=== PATIENT | male | born 1945 | race Caucasian/White ===

== ENCOUNTER 2017-11-08 08:37 | Outpatient (CLI) | payer MEDICARE, OTHER ==
--- NOTE | 2017-11-08 09:33 | ULT ---
ULTRASOUND RENAL LEFT UNILATERAL: Date: 11/08/17 HISTORY: BPH with lower urinary symptoms. COMPARISON: CT from 2015. FINDINGS: Right kidney is surgically absent. Left kidney measures 13.5 x 6.2 x 6.2 cm. Pre-void urinary bladder was 38 mL. No left-sided mass, hydronephrosis, or calcifications. IMPRESSION: Normal appearance of the left kidney. POS: [facility]
== END 2017-11-08 08:38 | disposition home or self-care (01) ==
LOC: ULT 08:37
PROVIDERS: ATTEND Urology
DX: N40.1 Benign prostatic hyperplasia with lower urinary tract symptoms (principal)
CPT/HCPCS: 76775

== ENCOUNTER 2017-12-03 15:31 | Emergency (ER) | payer MEDICARE, OTHER ==
[2017-12-03] MEDS ORDERED: diphenhydrAMINE 50 MG/ML VIAL ONE (15:39)
[2017-12-03] MEDS ORDERED: Sterile Water 10 ML ONE (15:39)
[2017-12-03] MEDS ORDERED: methylPREDNISolone Sod Succ/PF 125 MG/2 ML VIAL ONE (15:39)
[2017-12-03] MEDS ORDERED: Famotidine/PF 20 mg/2ml Vial ONE (15:39)
[2017-12-03] MEDS ORDERED: Sodium Chloride For Inhalation 0.9% 3 ML NEB ONE (15:48)
[2017-12-03] MEDS ORDERED: Benzocaine 20% Spray 60 ML CAN ONE (16:08)
== END 2017-12-03 16:55 | disposition home or self-care (01) ==
LOC: SCSER 15:31
DX: T63.441A Toxic effect of venom of bees, accidental (unintentional), initial encounter (principal); E11.9 Type 2 diabetes mellitus without complications; E78.5 Hyperlipidemia, unspecified; I10 Essential (primary) hypertension; F17.290 Nicotine dependence, other tobacco product, uncomplicated; Z85.528 Personal history of other malignant neoplasm of kidney; Z79.82 Long term (current) use of aspirin; Z79.899 Other long term (current) drug therapy
CPT/HCPCS: 93005; 96361; 96374; 96375; A4216; J1200; J2930; J7620; S0028

== ENCOUNTER 2018-08-26 11:24 | Outpatient (CLI) | payer MEDICARE, OTHER ==
--- NOTE | 2018-08-26 13:23 | RAD ---
TWO VIEWS CHEST: Comparison: 09-02-17, 07-22-18 History: Shortness of breath, cough. FINDINGS: Two views of the chest shows normal sized cardiomediastinal silhouette. There are diffused mixed alve olar/interstitial opacities which appear worse compared to the prior examination. No pleural effusion is seen. The patient is status post right shoulder arthroplasty. IMPRESSION: Worsening mixed alveolar/interstitial infiltrates throughout the lungs. POS: [facility]
== END 2018-08-26 11:25 | disposition home or self-care (01) ==
LOC: BICRAD 11:24
PROVIDERS: ATTEND Internal Medicine
DX: R05 Cough (principal); R06.09 Other forms of dyspnea
CPT/HCPCS: 71046

== ENCOUNTER 2018-08-31 10:43 | Outpatient (CLI) | payer MEDICARE, OTHER ==
--- NOTE | 2018-08-31 13:04 | RAD ---
FRONTAL AND LATERAL IMAGING OF THE CHEST: Date: 08-31-18 Comparison: 08-26-18 History: Shortness of breath FINDINGS: Extensive nonspecific articular nodular densities are noted throughout both lungs, right greater than left, not significantly changed when compared to 08-26-18. There is stable prominence of the cardiac silhouette. Heart and mediastinal contours are stable. There is no pneumothorax. Small bilateral ple ural effusions are suspected. There is slight widening of the superior mediastinum, unchanged when compared to studies dating back to 03-14-16. IMPRESSION: Stable appearance of the chest when compared to the 08-26-18 examination. Findings are slightly more prominent than on the 07-22-18 exam. Nonspecific reticular nodular densities are noted which may sign dennis multifocal infectious pneumonitis or pulmonary edema. However, these findings may be on the basis of malignancy with bilateral pulmonary parenchymal metastatic disease. Code T POS: [facility]
== END 2018-08-31 10:44 | disposition home or self-care (01) ==
LOC: RAD 10:43
PROVIDERS: ATTEND Internal Medicine Critical Care Medicine
DX: R06.00 Dyspnea, unspecified (principal); J98.4 Other disorders of lung
CPT/HCPCS: 71046

== ENCOUNTER 2018-10-29 19:32 | Inpatient (IN) | payer MEDICARE, OTHER ==
[2018-10-29 20:17] LABS: #Eosinphils 0.2 thou/uL (0.0-0.7); #Lymphocytes 1.2 thou/uL (1.20-3.40); #Monocytes 0.7 thou/uL (0.11-0.59); #Neutrophils 9.1 thou/uL (1.40-6.50); %Eosinophils 1.7 % (0.0-10.0); %Lymphocytes 10.8 % (21.0-51.0); %Monocytes 6.2 % (0.0-10.0); %Neutrophils 81.3 % (42.0-75.0); Hemoglobin 12.5 g/dL (14.0-18.0); Mean Corpuscular HGB CONC 32.3 g/dL (32.0-36.0); Mean Corpuscular Hemoglobin 30.6 pg (27.0-31.0); Mean Corpuscular Volume 94.7 fL (78.0-98.0); Mean Platelet Volume 6.2 fL (7.4-10.4); Platelet Count 228 thou/uL (130-400); RBC Distribution Width 16.6 % (11.5-14.5); White Blood Cell (WBC) Count 11.2 thou/uL (4.8-10.8)
[2018-10-29 20:50] LABS: ALT (SGPT) 23 U/L (8-55); AST (SGOT) 22 U/L (5-34); Albumin 3.7 g/dL (3.4-4.8); Alkaline Phosphatase 89 U/L (40-150); Anion Gap 13 mmol/L (10-20); BUN (Urea Nitrogen) 26 mg/dL (8.4-25.7); Bilirubin, Total 0.5 mg/dL (0.2-1.2); CK (CPK) 110 U/L (30-200); Calc. Creatinine Clearance 0 mL/min (70-130); Calcium 8.9 mg/dL (7.8-10.44); Carbon Dioxide 24 mmol/L (23-31); Chloride 104 mmol/L (98-107); Estimated GFR-MDRD 43; Globulin 2.6 g/dL (2.4-3.5); Glucose 145 mg/dL (83-110); Lipase 18 U/L (8-78); Potassium 4.4 mmol/L (3.5-5.1); Protein, Total 6.3 g/dL (5.8-8.1); Sodium 137 mmol/L (136-145)
[2018-10-29] MEDS ORDERED: Morphine 4 MG/ML VIAL ONE (20:53)
[2018-10-29] MEDS ORDERED: Acetaminophen 500 MG TAB ONE (20:56)
[2018-10-29 21:02] LABS: Bilirubin Negative (Negative); Blood, Urine Small (Negative); Clarity CLEAR (Clear); Glucose, Urine (Dipstick) 100 mg/dL (Negative); Leukocyte Negative (Negative); Nitrite Negative (Negative); Protein, Urine (Dipstick) > or equal to 300 mg/dL (Neg-Trace); Specific Gravity, Urine 1.027 (1.002-1.036); Urobilinogen 0.2 mg/dL (0.2-1.0)
[2018-10-29 21:07] LABS: Bacteria/HPF None Seen HPF (None Seen); Hyaline Casts/LPF 4-6 HYALINE CAST LPF (0-3 Hyaline); Pathc Cast-AUWi Flag 0.72 (0-2.49); Squamous Epithelial 0-3 HPF (0-3); WBC/HPF 0-3 HPF (0-3)
[2018-10-29] MEDS ORDERED: Vancomycin HCl 1.5 GM in Sodium Chloride 0.9% 250 ML 300 ML IVPB SCH (21:30)
[2018-10-29] MEDS ORDERED: Cefepime 1 GM in Sodium Chloride 0.9% 100 ML IVPB SCH (21:30)
--- NOTE | 2018-10-29 21:45 | RAD ---
AP VIEW CHEST 10/29/18 HISTORY: Chest pain. AP view chest obtained on 10/29/18. Comparison made to a previous exam from 08/31/18. AP view chest demonstrates right shoulder arthroplasty in place. Cardiomegaly is seen. Bilateral lung parenchymal air space opacity seen. This is less pronounced than on the previous exam. Pulmonary vascular congestion seen. IMPRESSION: 1. Cardiomegaly, pulmonary vascular congestion. 2. Peristent but decreased bilateral air space opacities. POS: [facility]
[2018-10-29] MEDS ORDERED: Ondansetron ODT 4 MG TAB PO PRN (22:15)
[2018-10-29] MEDS ORDERED: Ondansetron PF 4 MG/2 ML Vial IVP PRN (22:15)
[2018-10-29] MEDS ORDERED: Fentanyl 100 MCG/2 ML VIAL ONE (22:38)
[2018-10-30 00:41] VITALS: BMI 40.6
[2018-10-30] MEDS ORDERED: Morphine 2 MG/ML SYRINGE SLOW IVP PRN ×3 (00:51→04:57)
[2018-10-30] MEDS ORDERED: HumaLOG 300 UNITS/3 ML VIAL SC PRN (01:14)
[2018-10-30] MEDS ORDERED: Dextrose 5% in Water 1,000 ML IV PRN (01:14)
[2018-10-30] MEDS ORDERED: Dextrose 50% Abboject 50 ML SYRINGE SLOW IVP PRN (01:14)
[2018-10-30] MEDS ORDERED: Morphine 4 MG/ML VIAL SLOW IVP PRN (01:21)
[2018-10-30] MEDS ORDERED: Morphine 4 MG/ML VIAL ONE (01:25)
--- NOTE | 2018-10-30 02:51 | HP ---
PRIMARY CARE DOCTOR: Jose Luis Whelan MD CODE STATUS: Full code. TIME OF EVALUATION: 2200 hours. CHIEF COMPLAINT: Right groin pain. HISTORY OF PRESENT ILLNESS: This is a 73-year-old male patient. The patient has past medical history of diabetes, hyperlipidemia, hypertension, renal cell carcinoma on chemotherapy and immunotherapy on a daily basis. The patient came to the hospital after having severe right flank pain, most severe in the right groin area, radiating to the back. The patient reported that he has had this pain in the past, and he has received some treatment for the pain that was related to procedure. He cannot recall the name and the pain improved significantly. Symptoms have come back now and that was the reason why he came to the hospital. During the admission, the patient also was found to have fever, and he has been started on broad-spectrum antibiotics since the patient has a history of cancer being on chemo on a daily basis. The patient follows at [facility], and the was concerned that they have an appointment for a full checkup in [facility] two days from now and then she could like to go home tomorrow, we have discussed risks and benefits. He is febrile, he is on chemotherapy, very high risk for complications, has explained to her that the decision of being willing to go might be risky, and that might be again disclose tomorrow with my colleagues in the morning. Symptoms were severe, needing opioid medications for optimal control. REVIEW OF SYSTEMS: CONSTITUTIONAL: The patient had fever, no chills. The patient reported generalized weakness. RESPIRATORY: No cough, sputum production, or shortness of breath. CARDIOVASCULAR: No chest pain or palpitation. GASTROINTESTINAL: No nausea. No vomiting, diarrhea, or abdominal pain. VENEER CLIPPER: No dizziness, headache, or feeling lightheaded. GENITOURINARY: The patient has right groin pain radiating to the right flank, unclear if related to the genitourinary tract. However, he reported that this was on presentation related to his testicles that resolved few years ago after specialized treatment. EXTREMITIES: No leg swelling. All other systems were reviewed and negative except for the findings mentioned above. PAST MEDICAL HISTORY: Past medical history includes diabetes, hyperlipidemia, hypertension, and renal cell carcinoma on immunotherapy. FAMILY HISTORY:Reviewed and no contributory for current presentation. PAST SURGICAL HISTORY: 1. Nephrectomy on the right side in 11/2014. 2. Orthopedic surgery in the right and left knee, right shoulder. 3. Partial left upper lobe lobectomy. 4. Left hip replacement. SOCIAL HISTORY: Former tobacco user. Smokes cigarettes. Quit smoking in the past year. The patient drinks everyday, drinks half a pint of drinks per day. Alcohol, the patient drinks 1 to 2 whisky drinks on a daily basis. ALLERGIES: CIPROFLOXACIN. REPORTED MEDICATIONS: 1. Senna. 2. Victoza. 3. Procardia. 4. Reglan. 5. Ritalin. 6. Fludrocortisone. 7. Flomax. 8. Eliquis. 9. [place]. 10. Finasteride. 11. Cymbalta. 12. Cometriq. PHYSICAL EXAMINATION: VITAL SIGNS: On presentation, blood pressure 155/80 with heart rate 77, respiratory rate was 22, temperature 102.6, pain was 5/10. Oxygen saturation was 97% on room air. GENERAL APPEARANCE: The patient is alert, oriented, mild distress due to right groin pain. HEENT: Eyes, normal conjunctivae. Moist oral mucosa. Anicteric. No JVD. RESPIRATORY: Bilateral air entry. No rales. No wheezes. Symmetric expansion. CARDIOVASCULAR: Normal rate and regular rhythm. No murmurs. No gallop. No edema. ABDOMEN: Soft. Normal bowel sounds. MUSCULOSKELETAL: Baseline range of motion and strength. No tenderness. SKIN: Warm and intact. No pallor. No rash. No redness. Peripheral pulses are present. Capillary refill seems to be intact. NEURO: No evidence of any new focal weakness. Baseline speech. Cranial nerves seem to be intact. PSYCH: The patient is in good mood. No anxiety. Optimal judgment. DIAGNOSTIC STUDIES: EKG was reviewed. The patient has normal sinus rhythm, ventricular rate 74, TN 170, QRS 108, QT corrected 415. Chest x-ray was reviewed. The patient has cardiomegaly and pulmonary vascular congestion, persistent, but decreased, bilateral air space opacity. LABORATORY DATA: Labs were reviewed. White count 11.2, hemoglobin 12.5, MCV 94.7, and platelet count 228. Chemistry: Sodium 137, potassium 4.4, chloride 104, carbon dioxide 24, anion gap 13, BUN 36, creatinine 1.59, the previous creatinine in 2017 was 1.49. The GFR 43. Glucose 145. Lactic acid 1.5, calcium 8.9, total bilirubin 0.5, AST 22, ALT 23, alkaline phosphatase 89, CK 110. Troponin 0.014. Beta-natriuretic peptide was 57.3. Serum total protein 6.3, albumin 3.7, globulin 2.6, albumin globulin ratio is 1.4 with lipase 18. Urine was done was basically negative. ASSESSMENT AND PLAN: The patient has been placed in the hospital with the following medical problems: 1. Systemic inflammatory response syndrome. The patient is immunosuppressed, on chemotherapy on a daily basis. The patient has been started on broad-spectrum antibiotics. We will follow cultures, adjust treatment as needed. 2. Right groin pain. The patient reported that he has a strange syndrome that give him right groin pain that he has been treated with specialist for this and now resolved with the procedure that he does not recall the name a few years ago , this will need to be reassessed for any further treatment. 3. Chronic kidney disease, stage 3. GFR is 43, we will follow kidney function, we will adjust treatment as needed. 4. Hyperglycemia, uncontrolled diabetes. Blood sugar 145. We will reconcile home medications and place the patient on sliding scale for optimal control. 5. History of renal cell carcinoma, on chemotherapy and immunotherapy. The patient follows in [facility], is willing to be discharged tomorrow, and take the patient to [facility] for a full checkup. I have explained him there maybe risk since the patient is having fever and we do not know the source yet. This can be reassessed and rediscussed with the patient and in the morning. 6. Deep venous thrombosis prophylaxis. Job ID: [id number] [facility]
[2018-10-30] MEDS: Morphine 2 MG/ML SYRINGE SLOW IVP PRN ×6 (05:02→17:37)
[2018-10-30 06:53] LABS: #Eosinphils 0.3 thou/uL (0.0-0.7); #Monocytes 0.8 thou/uL (0.11-0.59); #Neutrophils 5.8 thou/uL (1.40-6.50); %Basophils 0.4 % (0.0-1.0); %Eosinophils 2.9 % (0.0-10.0); %Lymphocytes 22.7 % (21.0-51.0); %Monocytes 8.7 % (0.0-10.0); %Neutrophils 65.3 % (42.0-75.0); Hemoglobin 11.1 g/dL (14.0-18.0); Mean Corpuscular HGB CONC 31.8 g/dL (32.0-36.0); Mean Corpuscular Hemoglobin 30.5 pg (27.0-31.0); Mean Platelet Volume 6.4 fL (7.4-10.4); Platelet Count 205 thou/uL (130-400); RBC Distribution Width 16.5 % (11.5-14.5); Red Blood Cell (RBC) Count 3.65 mill/uL (4.70-6.10); White Blood Cell (WBC) Count 8.9 thou/uL (4.8-10.8)
[2018-10-30 07:10] LABS: Anion Gap 10 mmol/L (10-20); BUN (Urea Nitrogen) 26 mg/dL (8.4-25.7); Calc. Creatinine Clearance 72 mL/min (70-130); Calcium 8.5 mg/dL (7.8-10.44); Carbon Dioxide 24 mmol/L (23-31); Chloride 106 mmol/L (98-107); Estimated GFR-MDRD 44; Glucose 107 mg/dL (83-110); Potassium 4.2 mmol/L (3.5-5.1); Sodium 136 mmol/L (136-145)
[2018-10-30] MEDS ORDERED: Cefepime 1 GM in Sodium Chloride 0.9% 100 ML IVPB SCH (08:00)
[2018-10-30] MEDS: Acetaminophen 325 MG TAB PO PRN ×2 (10:00→15:28)
[2018-10-30] MEDS ORDERED: Zolpidem Tartrate 5 MG TAB PO PRN (10:22)
--- NOTE | 2018-10-30 10:59 | PRG ---
DATE OF SERVICE: SUBJECTIVE: The patient reports that he is doing generally okay. The pain in his right groin and hip area has basically resolved. He is able to ambulate. As stated previously, this is not a new pain for him and was not terribly surprised that it occurred this morning; however, he is having significant pain and throbbing in his left elbow, which he believes may be due to some arthritis. He does have a history of arthritis and bone spurs in that elbow and is not able to fully extend it. He describes the pain as being over the ulnar groove. PHYSICAL EXAMINATION: VITAL SIGNS: Temperature maximum 98.3, temperature 98.1, pulse 59, respirations 16, O2 saturation 95% on room air, and BP 154/71. GENERAL APPEARANCE: Age-appropriate male, in no distress. He is awake, alert, oriented, pleasant, and cooperative. HEENT: Pupils slightly constricted and he is all glassy eyed. No OP lesions. HEART: Regular rate and rhythm without murmurs. LUNGS: Clear to auscultation bilaterally with no wheeze or rales. ABDOMEN: Soft, nontender, and nondistended. Positive bowel sounds. No masses. No organomegaly. EXTREMITIES: He has trace edema in the lower extremities pretibially. Left elbow has inability to fully extend to about 15 degrees shy. There is tenderness to palpation over the area of the ulnar groove and ulnar nerve just distal from there. 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 LABORATORY DATA: White count 8.9, hemoglobin 11.1, and platelets 205. BUN 26 and creatinine 1.55. Flu screen was negative. Blood cultures negative thus far. IMPRESSION AND PLAN: 1. Right groin and hip pain, resolved. 2. Fever. The patient has been afebrile since arriving from the emergency department. His white count is normal and he has no specific indications of infection going on at this time. His chest x-ray did not show significant evidence for pneumonia and his urinalysis showed no evidence of infection either. Currently, he is on cefepime and vanc. We will leave him on that for now. 3. Left elbow pain. We will get an x-ray. The patient unfortunately has chronic kidney disease because of his renal cell carcinoma and history of nephrectomy. Therefore, we will avoid anti-inflammatories. Because of his single episode of fever, we will avoid steroids. Otherwise, he will have to stay on opioids and Tylenol as best we can manage it. 4. History of renal cell carcinoma. The patient has an appointment at [facility] tomorrow morning. They very much would like to be able to leave this afternoon so that they can make that appointment in the morning. I believe if he does not have any more fever throughout the day today, can likely be discharged on p.o. antibiotic to follow up for further evaluation there as needed. He appears to be relatively immunocompetent based on his CBC. 5. Chronic kidney disease secondary to the renal cell carcinoma and the prior nephrectomy. His creatinine is at his baseline as is his creatinine clearance at 44 giving him stage 3 disease. 6. I will resume his regular home medications today. Job ID: [id number]
[2018-10-30] MEDS: HYDROcodone/Acetaminophen 10/325 mg Tablet PO PRN ×2 (12:06→17:36)
--- NOTE | 2018-10-30 14:46 | RAD ---
4 VIEWS LEFT ELBOW: Date: 10/30/18 HISTORY: Left elbow pain. FINDINGS: There are severe degenerative changes and osteoarthritis involving the left elbow with prominent oste ophytes in the region of the radial head. There are corticated osseous densities also seen anterior t o the elbow joint, likely attributable to prominent degenerative changes. Intraarticular loose body i n this region cannot be entirely excluded. There is a moderate sized joint effusion present. There is a lucent lesion seen involving the olecranon process of the elbow, which does demonstrate sclerotic margins. This may represent a large subchondral cyst secondary to degenerative changes about the elbo w. No obvious acute fracture is seen, and there is no evidence of a dislocation. IMPRESSION: 1. Moderate sized joint effusion. No obvious fracture is seen, but the size of the joint effusion is out of proportion to that expected for degenerative changes, and a fracture should be considered. Ra dial head or neck fracture would be difficult to exclude given prominent osteophytes. 2. 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 3. Lytic lesion within the olecranon process of the ulna, probably related to large subchondral cyst ic changes and secondary to the degenerative changes about the elbow. This has an overall nonaggressi ve appearance, but this can also be reevaluated on follow-up examination. CODE T. POS: [facility]
[2018-10-30 18:20] VITALS: BP 145/67; TEMP 98.1
[2018-10-30] MEDS ORDERED: Apixaban 5 MG TAB PO SCH (21:00)
[2018-10-30] MEDS ORDERED: METHYLPHENIDATE HCL 20 MG PO SCH (21:00)
[2018-10-30] MEDS ORDERED: INSULIN DETEMIR 16 UNIT SQ SCH (21:00)
[2018-10-30] MEDS ORDERED: Insulin Glargine 16 UNITS in Pre-Filled Syringe 1 EACH SC SCH (21:00)
[2018-10-31] MEDS ORDERED: Fludrocortisone Acetate 0.1 MG TAB PO SCH (09:00)
[2018-10-31] MEDS ORDERED: Senokot 8.6 MG TAB PO SCH (09:00)
[2018-10-31] MEDS ORDERED: CABOZANTINIB S MALATE 40 MG PO SCH (09:00)
[2018-10-31] MEDS ORDERED: Furosemide 20 MG TAB PO SCH (09:00)
[2018-10-31] MEDS ORDERED: DULoxetine 60 MG CAP PO SCH (09:00)
[2018-10-31] MEDS ORDERED: Finasteride 5 MG TAB PO SCH (09:00)
[2018-10-31] MEDS ORDERED: Multivit, Therapeutic 1 TAB PO SCH (09:00)
[2018-10-31] MEDS ORDERED: Metoclopramide HCl 10 MG TAB PO SCH (09:00)
[2018-10-31] MEDS ORDERED: NIFEdipine XL 60 MG TAB PO SCH (09:00)
== END 2018-10-30 18:27 | disposition home or self-care (01) | DRG 392 ==
LOC: ERS 19:32 → ONC 21:55
PROVIDERS: ADMIT Hospitalist; ATTEND Hospitalist
DX: R10.31 Right lower quadrant pain (principal); R65.10 Systemic inflammatory response syndrome (SIRS) of non-infectious origin without acute organ dysfunction; E11.22 Type 2 diabetes mellitus with diabetic chronic kidney disease; E11.65 Type 2 diabetes mellitus with hyperglycemia; I12.9 Hypertensive chronic kidney disease with stage 1 through stage 4 chronic kidney disease, or unspecified chronic kidney disease; N18.3 Chronic kidney disease, stage 3 (moderate); Z92.21 Personal history of antineoplastic chemotherapy; Z87.891 Personal history of nicotine dependence; M25.522 Pain in left elbow; Z90.5 Acquired absence of kidney
CPT/HCPCS: 36415; 36416; 71045; 80048; 80053; 81003; 81015; 82550; 83605; 83690; 83880; 84484; 85025; 87040; 87086; 87804; 93005; J0692; J1825; J2270; J3010; J3370; J7050

== ENCOUNTER 2018-11-30 10:37 | Emergency (ER) | payer MEDICARE, OTHER ==
[2018-11-30] MEDS ORDERED: Morphine 4 MG/ML VIAL ONE ×2 (11:38→14:27)
[2018-11-30] MEDS ORDERED: Morphine 2 MG/ML SYRINGE ONE ×2 (11:39→14:28)
[2018-11-30 11:50] LABS: #Eosinphils 0.2 thou/uL (0.0-0.7); #Lymphocytes 1.3 thou/uL (1.20-3.40); #Monocytes 0.7 thou/uL (0.11-0.59); #Neutrophils 7.1 thou/uL (1.40-6.50); %Basophils 0.4 % (0.0-1.0); %Eosinophils 2.3 % (0.0-10.0); %Lymphocytes 14.1 % (21.0-51.0); %Monocytes 7.9 % (0.0-10.0); %Neutrophils 75.2 % (42.0-75.0); Hemoglobin 12.6 g/dL (14.0-18.0); Mean Corpuscular HGB CONC 32.5 g/dL (32.0-36.0); Mean Corpuscular Hemoglobin 30.8 pg (27.0-31.0); Mean Corpuscular Volume 94.5 fL (78.0-98.0); Mean Platelet Volume 6.5 fL (7.4-10.4); Platelet Count 238 thou/uL (130-400); RBC Distribution Width 17.6 % (11.5-14.5); Red Blood Cell (RBC) Count 4.09 mill/uL (4.70-6.10); White Blood Cell (WBC) Count 9.4 thou/uL (4.8-10.8)
--- NOTE | 2018-11-30 12:04 | RAD ---
FXR Elbow Lt 2 View History: [Pain. Questionable bone lesion.] Comparison: Radiograph October 30, 2018 Findings: There is a large joint effusion. There is large subcortical cyst olecranon. Large osteophyt es are present in the medial compartment. Moderate soft tissue swelling. No definite acute fractures appreciated. Impression: Advanced degenerative changes.
[2018-11-30 12:11] LABS: ALT (SGPT) 29 U/L (8-55); AST (SGOT) 25 U/L (5-34); Albumin 3.5 g/dL (3.4-4.8); Alkaline Phosphatase 92 U/L (40-150); Anion Gap 13 mmol/L (10-20); BUN (Urea Nitrogen) 30 mg/dL (8.4-25.7); Bilirubin, Total 0.8 mg/dL (0.2-1.2); CK (CPK) 70 U/L (30-200); Calc. Creatinine Clearance 0 mL/min (70-130); Calcium 9.6 mg/dL (7.8-10.44); Carbon Dioxide 27 mmol/L (23-31); Chloride 101 mmol/L (98-107); Estimated GFR-MDRD 38; Globulin 3.8 g/dL (2.4-3.5); Glucose 131 mg/dL (83-110); Potassium 5.4 mmol/L (3.5-5.1); Protein, Total 7.3 g/dL (5.8-8.1); Sodium 136 mmol/L (136-145); Uric Acid 7.3 mg/dL (3.5-7.2)
--- NOTE | 2018-12-01 17:13 | RAD ---
F2 views right elbow. HISTORY: right elbow pain. AP and lateral views right elbow is obtained. There is severe right elbow osteoarthritic changes involving the radial head and olecranon. No eviden ce of acute fractures seen. No acute bony lesions noted. IMPRESSION: Right elbow osteoarthritis.
== END 2018-11-30 14:41 | disposition home or self-care (01) ==
LOC: ERS 10:37
DX: M19.022 Primary osteoarthritis, left elbow (principal); M19.021 Primary osteoarthritis, right elbow; E11.9 Type 2 diabetes mellitus without complications; E78.5 Hyperlipidemia, unspecified; I10 Essential (primary) hypertension; Z87.891 Personal history of nicotine dependence; Z79.899 Other long term (current) drug therapy
CPT/HCPCS: 36415; 80053; 82550; 84550; 85025; 96372; J2270

== ENCOUNTER 2018-12-02 14:33 | Emergency (ER) | payer MEDICARE, OTHER | END 2018-12-02 15:34 | disposition home or self-care (01) | LOC: SCSER 14:33 | DX: M25.521 Pain in right elbow (principal); M25.522 Pain in left elbow; E78.5 Hyperlipidemia, unspecified; I10 Essential (primary) hypertension; E11.9 Type 2 diabetes mellitus without complications; Z87.891 Personal history of nicotine dependence; Z79.82 Long term (current) use of aspirin; Z79.899 Other long term (current) drug therapy | CPT/HCPCS: 96372 ==

== ENCOUNTER 2019-03-06 14:43 | Emergency (ER) | payer MEDICARE, OTHER ==
--- NOTE | 2019-03-06 15:21 | RAD ---
2 VIEWS RIGHT TIBIA AND FIBULA: Date: 03/06/19 COMPARISON: None. HISTORY: Right lower leg pain since Wednesday when he walked into the edge of a trailer. FINDINGS: 2 views of the right tibia/fibula show no evidence of acute fracture or dislocation. The patient has a right knee prosthesis without perihardware lucency or fracture. Vascular calcifications are seen. IMPRESSION: No evidence of acute osseous abnormality. POS: [facility]
== END 2019-03-06 15:32 | disposition home or self-care (01) ==
LOC: SCSER 14:43
DX: S80.11XA Contusion of right lower leg, initial encounter (principal); E11.9 Type 2 diabetes mellitus without complications; E78.5 Hyperlipidemia, unspecified; I10 Essential (primary) hypertension; Z87.891 Personal history of nicotine dependence; Z79.82 Long term (current) use of aspirin; Z79.899 Other long term (current) drug therapy; X50.9XXA Other and unspecified overexertion or strenuous movements or postures, initial encounter

== ENCOUNTER 2019-06-25 06:50 | Inpatient (IN) | payer MEDICARE, OTHER ==
[2019-06-25 07:09] LABS: #Eosinphils 0.1 thou/uL (0.0-0.7); #Lymphocytes 1.5 thou/uL (1.20-3.40); #Monocytes 0.3 thou/uL (0.11-0.59); #Neutrophils 6.3 thou/uL (1.40-6.50); %Basophils 0.3 % (0.0-1.0); %Eosinophils 1.6 % (0.0-10.0); %Lymphocytes 18.3 % (21.0-51.0); %Monocytes 3.8 % (0.0-10.0); %Neutrophils 75.9 % (42.0-75.0); Mean Corpuscular Hemoglobin 31.1 pg (27.0-31.0); Mean Platelet Volume 6.8 fL (7.4-10.4); Platelet Count 211 thou/uL (130-400); RBC Distribution Width 17.1 % (11.5-14.5); White Blood Cell (WBC) Count 8.4 thou/uL (4.8-10.8)
[2019-06-25 07:32] LABS: ALT (SGPT) 40 U/L (8-55); AST (SGOT) 26 U/L (5-34); Albumin 3.3 g/dL (3.4-4.8); Alkaline Phosphatase 78 U/L (40-110); Anion Gap 13 mmol/L (10-20); BUN (Urea Nitrogen) 30 mg/dL (8.4-25.7); Bilirubin, Total 0.7 mg/dL (0.2-1.2); CK (CPK) 73 U/L (30-200); Calc. Creatinine Clearance 0 mL/min (70-130); Calcium 9.3 mg/dL (7.8-10.44); Carbon Dioxide 24 mmol/L (23-31); Chloride 104 mmol/L (98-107); Estimated GFR-MDRD 38; Globulin 3.1 g/dL (2.4-3.5); Glucose 185 mg/dL (83-110); Potassium 4.7 mmol/L (3.5-5.1); Protein, Total 6.4 g/dL (5.8-8.1); Sodium 136 mmol/L (136-145)
[2019-06-25] MEDS ORDERED: Ondansetron PF 4 MG/2 ML Vial ONE (07:35)
[2019-06-25] MEDS ORDERED: Morphine 4 MG/ML VIAL ONE ×2 (07:35→09:26)
[2019-06-25 07:52] LABS: CKMB 0.7 ng/mL (0-6.6)
[2019-06-25] MEDS ORDERED: Enoxaparin Sodium 30 MG/0.3 ML SYRINGE ONE ×2 (08:54→08:55)
[2019-06-25] MEDS ORDERED: Enoxaparin Sodium 100 MG/ML SYRINGE ONE (08:54)
--- NOTE | 2019-06-25 09:05 | CT ---
CT PULMONARY ANGIOGRAM WITH IV CONTRAST AND 3D POSTPROCESSING: Date: 06/25/19 HISTORY: Chest pain. FINDINGS: There is good contrast opacification of the pulmonary arterial vasculature with filling defects in th e subsegmental branches of the right upper and lower lobes consistent with pulmonary embolism. The th oracic aorta is well opacified without aneurysm or dissection. Vascular calcifications are present. No pericardial or left pleural effusion seen. There is a tiny right pleural effusion. Multiple lung n odules are present suspicious for metastatic disease. Left hilar lymphadenopathy noted. Upper abdomin al tomograms demonstrate bilateral adrenal masses suspicious for metastatic disease. There are degene rative changes in the spine. IMPRESSION: 1. Findings are consistent with pulmonary embolism. 2. Findings are suspicious for lung and adrenal metastases. Discussed over the telephone with ER physician, Dr. Porsha Alamo, at 0828 hours. CODE CR. POS: [facility]
--- NOTE | 2019-06-25 10:06 | RAD ---
PORTABLE CHEST 1 VIEW: Date: 06/25/19 Time: 0702 hours HISTORY: Chest pain. FINDINGS/IMPRESSION: Comparison made with exam of 10/29/18. The heart size is enlarged. Chronic changes are again seen. No pneumothoraces, lobar consolidation, o r large effusions are identified. There are postop changes in the right shoulder. Nodular densities n oted on the CT chest of the same date are not satisfactorily differentiated on this exam. POS: [facility]
[2019-06-25 10:50] LABS: Troponin I 0.014 ng/mL (< 0.028)
[2019-06-25 12:06] VITALS: BMI 42.3
[2019-06-25] MEDS ORDERED: ISOVUE-370 76%-LOCM 1 ML ONE (12:11)
[2019-06-25 13:44] LABS: Troponin I 0.042 ng/mL (< 0.028)
[2019-06-25] MEDS ORDERED: Dextrose 50% Abboject 50 ML SYRINGE SLOW IVP PRN (13:48)
[2019-06-25] MEDS ORDERED: Ondansetron ODT 4 MG TAB PO PRN (13:48)
[2019-06-25] MEDS ORDERED: hydrALAZINE 20 MG/ML VIAL SLOW IVP PRN (13:48)
[2019-06-25] MEDS ORDERED: Acetaminophen 500 MG TAB PO PRN (13:48)
[2019-06-25] MEDS ORDERED: Dextrose 5% in Water 1,000 ML IV PRN (13:48)
[2019-06-25] MEDS ORDERED: HumaLOG 300 UNITS/3 ML VIAL SC PRN ×2 (13:48)
[2019-06-25] MEDS ORDERED: Morphine 4 MG/ML VIAL SLOW IVP SCH (13:48)
[2019-06-25] MEDS ORDERED: Ondansetron PF 4 MG/2 ML Vial IVP PRN (13:48)
[2019-06-25] MEDS: HYDROcodone/Acetaminophen 10/325 mg Tablet PO SCH ×2 (14:06→21:17)
[2019-06-25] MEDS: hydrALAZINE 25 MG TAB PO SCH ×2 (14:06→21:16)
--- NOTE | 2019-06-25 15:44 | ULT ---
BILATERAL LOWER EXTREMITY VENOUS DOPPLER ULTRASOUND: Date: 06/25/19 HISTORY: Pulmonary embolism. TECHNIQUE: [place] scale ultrasound with color flow and spectral Doppler imaging of the deep venous systems of the lower extremities was performed bilaterally. FINDINGS: Exam limited due to patient's body habitus. There is fairly good flow, compression, and augmentation noted in the common femoral, femoral, deep f emoral, popliteal, posterior tibial veins, and the saphenofemoral junctions bilaterally. IMPRESSION: No evidence of deep venous thrombosis in either lower extremity. POS: [facility]
[2019-06-25] MEDS: Morphine 4 MG/ML VIAL SLOW IVP PRN (18:38)
[2019-06-25] MEDS ORDERED: Famotidine 20 MG TAB PO SCH (21:00)
[2019-06-25] MEDS ORDERED: INSULIN DEGLUDEC 16 UNIT SQ SCH (21:00)
[2019-06-25] MEDS ORDERED: Senokot 8.6 MG TAB PO SCH (21:00)
[2019-06-25] MEDS: Senokot 8.6 MG TAB PO SCH (21:15)
[2019-06-25] MEDS: Tamsulosin HCl 0.4 MG CAP PO SCH (21:16)
[2019-06-25] MEDS: Finasteride 5 MG TAB PO SCH (21:16)
[2019-06-25] MEDS: Famotidine 20 MG TAB PO SCH (21:16)
[2019-06-25] MEDS: Insulin Glargine 16 UNITS in Pre-Filled Syringe 1 EACH SC SCH (21:16)
[2019-06-25] MEDS: Enoxaparin Sodium 120 MG/0.8 ML SYRINGE SC SCH (21:17)
[2019-06-26] MEDS: Morphine 4 MG/ML VIAL SLOW IVP PRN ×2 (00:06→06:36)
[2019-06-26 06:47] LABS: Band 11 % (5-11); Eosinophils 3 % (0-10); Hemoglobin 11.5 g/dL (14.0-18.0); Lymphocytes 33 % (21-51); MDiff Complete? YES; Mean Corpuscular Hemoglobin 32.5 pg (27.0-31.0); Mean Platelet Volume 6.9 fL (7.4-10.4); Monocytes 3 % (0-10); Neutrophil 49 % (42-75); Platelet Count 165 thou/uL (130-400); RBC Distribution Width 16.9 % (11.5-14.5); Reactive Lymphocytes 1 % (0-10); Red Blood Cell (RBC) Count 3.53 mill/uL (4.70-6.10); White Blood Cell (WBC) Count 6.5 thou/uL (4.8-10.8)
[2019-06-26 06:51] LABS: Anion Gap 13 mmol/L (10-20); BUN (Urea Nitrogen) 32 mg/dL (8.4-25.7); Calc. Creatinine Clearance 55 mL/min (70-130); Calcium 8.2 mg/dL (7.8-10.44); Carbon Dioxide 24 mmol/L (23-31); Chloride 103 mmol/L (98-107); Estimated GFR-MDRD 31; Glucose 99 mg/dL (83-110); Potassium 4.5 mmol/L (3.5-5.1); Sodium 135 mmol/L (136-145)
[2019-06-26] MEDS: Tamsulosin HCl 0.4 MG CAP PO SCH ×2 (07:56→20:17)
[2019-06-26] MEDS: Metoclopramide HCl 10 MG TAB PO SCH (07:56)
[2019-06-26] MEDS: NIFEdipine XL 60 MG TAB PO SCH (07:56)
[2019-06-26] MEDS: Multivit, Therapeutic 1 TAB PO SCH (07:56)
[2019-06-26] MEDS: HYDROcodone/Acetaminophen 10/325 mg Tablet PO SCH ×3 (07:57→20:18)
[2019-06-26] MEDS: Senokot 8.6 MG TAB PO SCH ×2 (07:57→20:17)
[2019-06-26] MEDS: Enoxaparin Sodium 120 MG/0.8 ML SYRINGE SC SCH ×2 (07:57→20:16)
[2019-06-26] MEDS: hydrALAZINE 25 MG TAB PO SCH ×3 (07:57→20:17)
[2019-06-26] MEDS ORDERED: predniSONE 1 MG TAB PO SCH (08:00)
[2019-06-26] MEDS ORDERED: LIRAGLUTIDE SC SCH (09:00)
[2019-06-26] MEDS ORDERED: Furosemide 20 MG TAB PO SCH (09:00)
[2019-06-26] MEDS ORDERED: NIFEdipine XL 30 MG TAB PO SCH (09:00)
[2019-06-26] MEDS ORDERED: predniSONE 20 MG TAB PO SCH (09:00)
--- NOTE | 2019-06-26 09:04 | PDOC.HOSPP ---
- Subjective Encounter Date: 06/26/19 Encounter Time: 09:00 Subjective: f/u for R-sided PE on current Lovenox with ? Eliquis failure. States R-sided CP better this am. c/o multiple areas of joint pain and had been weaned on Prednisone as outpt prior to admit. No fever, N/V. - Objective Vital Signs & Weight: Vital Signs (12 hours) Temp Pulse Resp BP BP BP Pulse Ox 06/26/19 08:00 97.9 F 102 H 24 H 154/85 H 97 06/26/19 07:57 65 06/26/19 07:56 65 06/26/19 03:00 97.6 F 65 20 145/67 H 95 06/25/19 23:35 99.5 F 94 L 06/25/19 21:16 86 151/74 H Weight Weight 281 lb 6.4 oz I&O: 06/25/19 06/26/19 06/27/19 06:59 06:59 06:59 Intake Total 720 Output Total 545 Balance 175 Result Diagrams: 06/26/19 06:19 06/26/19 06:19 Additional Labs: Accuchecks 06/26/19 06/25/19 06/25/19 05:24 20:15 16:30 POC Glucose 96 155 H 121 H Laboratory Tests 06/25/19 06/25/19 06/26/19 06:56 06:56 06:19 Hgb 13.0 L Neutrophils % 75.9 H Neutrophils % (Manual) 49 Creatinine 1.78 H Radiology Reviewed by me: Yes (BLE venous dopp - negative) EKG Reviewed by me: Yes (Tele - SR) Hospitalist ROS - Medication Medications: Active Medications Generic Name Dose Route Start Last Admin Trade Name Freq PRN Reason Stop Dose Admin Hydrocodone Bitart/Acetaminophen 1 tab 06/25/19 15:00 06/26/19 07:57 [place] 10/325 PO 1 tab TID ARRON Administration Enoxaparin Sodium 120 mg 06/25/19 21:00 06/26/19 07:57 Lovenox SC 120 mg 0900,2100 ARRON Administration Famotidine 20 mg 06/25/19 21:00 06/25/19 21:16 Pepcid PO 20 mg 2100 ARRON Administration Finasteride 5 mg 06/25/19 21:00 06/25/19 21:16 Proscar PO 5 mg QPM ARRON Administration Hydralazine HCl 25 mg 06/25/19 15:00 06/26/19 07:57 Apresoline PO 25 mg TID ARRON Administration Insulin Glargine 16 units/ 0.16 mls @ 0 mls/hr 06/25/19 21:00 06/25/19 21:16 Miscellaneous Medication SC 0.16 mls HS ARRON Administration Metoclopramide HCl 10 mg 06/26/19 09:00 06/26/19 07:56 Reglan PO 10 mg DAILY ARRON Administration Morphine Sulfate 4 mg 06/25/19 13:48 06/26/19 06:36 Morphine SLOW IVP 4 mg Q4H PRN Administration Moderate to Severe Pain (6-10) Multivitamins 1 tab 06/26/19 09:00 06/26/19 07:56 Theragran PO 1 tab DAILY ARRON Administration Nifedipine 60 mg 06/26/19 09:00 06/26/19 07:56 Procardia Xl PO 60 mg DAILY ARRON Administration Prednisone 4 mg 06/26/19 08:00 06/26/19 07:58 Prednisone PO 4 mg QAM-WM ARRON Administration Senna 1 tab 06/26/19 09:00 06/26/19 07:57 Senokot PO 1 tab QAM ARRON Administration Senna 1 tab 06/25/19 21:00 06/25/19 21:15 Senokot PO 1 tab HS ARRON Administration Tamsulosin HCl 0.4 mg 06/25/19 21:00 06/26/19 07:56 Flomax PO 0.4 mg BID ARRON Administration - Exam General Appearance: NAD, awake alert Eye: PERRL, anicteric sclera ENT: normocephalic atraumatic, no oropharyngeal lesions Neck: supple, symmetric, no JVD, no thyromegaly, no lymphadenopathy Heart: RRR, no murmur, no gallops, no rubs, normal peripheral pulses Respiratory: CTAB, no wheezes, no rales, no ronchi Gastrointestinal: soft, non-tender, non-distended, normal bowel sounds Extremities: no cyanosis, 1+ LE edema Extremities - other findings: TTP of multiple joints Skin: normal turgor, no lesions Neurological: cranial nerve grossly intact, no new deficit Musculoskeletal: generalized weakness Psychiatric: normal affect, A&O x 3 Hosp A/P (1) Pulmonary embolism Code(s): I26.99 - OTHER PULMONARY EMBOLISM WITHOUT ACUTE COR PULMONALE Status : Acute Qualifiers: Chronicity: acute Plan: R-sided PE, continue Lovenox 120mg sc BID, consider anticoagulation options for d/c, may need to continue Lovenox rather than DOAC (2) Acute respiratory failure with hypoxia Code(s): J96.01 - ACUTE RESPIRATORY FAILURE WITH HYPOXIA Status: Acute Plan: Improved, continue O2 prn (3) Metastatic renal cell carcinoma Code(s): C64.9 - MALIGNANT NEOPLASM OF UNSP KIDNEY, EXCEPT RENAL PELVIS Status : Acute Plan: Currently on Cometriq, continue medical oncology follow up, attempt to coordinate transfer to [facility] where pt has been followed (4) CKD (chronic kidney disease) stage 3, GFR 30-59 ml/min Status: Chronic Plan: Serial creatinine monitoring, avoid nephrotoxic meds and limit contrast exposure (5) Diabetes mellitus, type II, insulin dependent Code(s): E11.9 - TYPE 2 DIABETES MELLITUS WITHOUT COMPLICATIONS; 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 Status: Chronic Plan: Continue ISS, continue home insulin regimen (6) Hypertension Code(s): I10 - ESSENTIAL (PRIMARY) HYPERTENSION Status: Chronic Qualifiers: Hypertension type: essential hypertension Qualified Code(s): I10 - Essential (primary) hypertension Plan: Continue Hydralazine/Nifedipine, serial BP monitoring - Plan plan discussed w/ family, social worker, out of bed/ambulate, DVT proph w/SCDs Stable currently Continue Lovenox 120mg sc BID Awaiting Pulmonology/Oncology evaluation Prednisone 20mg po x 1 now then daily Coordinate for transfer to [facility] in [place] AM lab: BMP
[2019-06-26] MEDS ORDERED: Morphine 4 MG/ML VIAL SLOW IVP PRN ×2 (09:18→10:16)
[2019-06-26] MEDS ORDERED: methylPREDNISolone Sod Succ/PF 125 MG/2 ML VIAL IVP SCH (10:15)
[2019-06-26] MEDS: Fludrocortisone Acetate 0.1 MG TAB PO SCH (11:00)
--- NOTE | 2019-06-26 11:20 | HP ---
PRIMARY CARE PROVIDER: Jose Luis Whelan MD. PRIMARY ONCOLOGIST: Krystin Peterson MD. CHIEF COMPLAINT: Right-sided chest pain and shortness of breath. HISTORY OF PRESENT ILLNESS: This is a 73-year-old male, who presents to [facility] Emergency Department, complaining of approximate 24- to 48-hour right-sided severe chest pain with associated shortness of breath, that woke him from sleep approximately 4:30 a.m. The patient denied any change to his activity level, recent trauma, injury, or fever. The patient's history is significant for metastatic renal cell carcinoma with current chemotherapy at [facility] as well as the [facility]. The patient states he received an infusion of chemotherapy within the last 48 hours, but had no difficulty with the infusion. The patient states that he uses CPAP at night as well as oxygen nocturnally, but not typically during the daytime. The patient states he has been using oxygen around the clock in the last 24 hours. The patient denied any nausea, vomiting, diarrhea, hemoptysis, or urinary symptoms. The patient does state that he has some pain in his right chest wall, that is severe, radiating to his lower abdomen. The patient has noted swelling of his lower extremities, but states that he has intermittent swelling on a chronic basis. The patient also admits to history of pulmonary embolus, on chronic Eliquis therapy. The patient states he has been compliant with his Eliquis and takes 2.5 mg b.i.d. The patient states he is scheduled to return to [facility] in approximately 6 weeks for further CAT scan imaging to assess progression of his tumor burden. In the emergency room, the patient underwent general evaluation including CT angiogram of the chest, showing evidence of a new pulmonary embolus. The patient received subcutaneous Lovenox 1 mg/kg in addition to morphine sulfate, intravenous normal saline, and Zofran. The patient continues on oxygen supplementation at 2L/minute by nasal cannula. PAST MEDICAL HISTORY: 1. Metastatic renal cell carcinoma involving pulmonary and adrenal glands. 2. Pulmonary embolus with current Eliquis therapy. 3. Hypertension. 4. Chronic kidney disease, stage 3. 5. Diabetes mellitus, type 2, insulin requiring. 6. Severe osteoarthritis. 7. Hyperlipidemia. PAST SURGICAL HISTORY: 1. Status post right nephrectomy. 2. Status post bilateral knee surgery. 3. Status post right shoulder repair. 4. Status post left upper lobectomy. 5. Status post left total hip arthroplasty. CURRENT MEDICATIONS: 1. Eliquis 2.5 mg p.o. b.i.d. 2. Cometriq 40 mg p.o. daily. 3. Finasteride 5 mg p.o. nightly. 4. Florinef 0.1 mg p.o. daily. 5. Bulger 10/325 mg one tablet p.o. t.i.d. p.r.n. pain. 6. . 7. Ritalin 20 mg p.o. b.i.d. 8. Reglan 10 mg p.o. daily. 9. Multivitamin one tablet p.o. daily. 10. Senna one tablet p.o. q.a.m. 11. Hydralazine 25 mg p.o. t.i.d. 12. Procardia 60 mg p.o. daily. 13. Prednisone 4 mg p.o. daily. 14. Tamsulosin 0.4 mg p.o. b.i.d. ALLERGIES: TO CIPROFLOXACIN. FAMILY HISTORY: No inheritable diseases per the patient's report. SOCIAL HISTORY: The patient is . Former tobacco use, none currently. Positive alcohol use. No illicit drug use. Accompanied by his son in the hospital. REVIEW OF SYSTEMS: CONSTITUTIONAL: Negative for weight loss or gain, ability to conduct usual activities. SKIN: Negative for rash, itching. EYES: Negative for double vision, pain. ENT/MOUTH: Negative for nose bleeding, neck stiffness, pain, tenderness. CARDIOVASCULAR: Negative for palpitations, dyspnea on exertion, orthopnea. RESPIRATORY: Negative for wheezing, cough, hemoptysis, fever or night sweats. GASTROINTESTINAL: Negative for poor appetite, abdominal pain, heartburn, nausea, vomiting, constipation, or diarrhea. GENITOURINARY: Negative for urgency, frequency, dysuria, nocturia. MUSCULOSKELETAL: Negative for pain. NEUROLOGIC/PSYCHIATRIC: Negative for anxiety, depression. ALLERGY/IMMUNOLOGIC: Negative for skin rash, bleeding tendency. Otherwise negative except as stated per HPI. PHYSICAL EXAMINATION: VITAL SIGNS: On admission. Blood pressure 177/105, pulse 64, respiratory rate 17, temperature 97.9 degrees Fahrenheit, and O2 saturation 97% on 2L/minute by nasal cannula. GENERAL APPEARANCE: This is a 73-year-old male, alert and oriented x3, pleasant, in moderate distress. HEENT: Pupils are equal, round, and reactive to light and accommodation. Extraocular muscles are intact. No scleral icterus. No conjunctival injection. Nares patent. OP is clear. Teeth in fair repair. NECK: Supple. No cervical adenopathy. No thyromegaly. No carotid bruits. No JVD appreciated. Cervical spine with full active and passive range of motion. No meningeal signs noted. CHEST: Diminished breath sounds in the bases bilaterally. CARDIOVASCULAR: S1 and S2 without noted murmur, rub, or gallop. Heart sounds are distant. ABDOMEN: Obese with difficult to palpate landmarks due to body habitus. No rebound or guarding appreciated. Bowel sounds are positive in all 4 quadrants. No palpable mass. EXTREMITIES: Warm and dry with fair turgor. Mild edema to the lower extremities bilaterally. Pulses palpable distally at the dorsalis pedis and posterior tibial arteries bilaterally. Capillary refill less than 2 seconds. NEUROLOGIC: Cranial nerves 2 through 12 are grossly intact. No focal or lateralizing signs appreciated. PERTINENT LABORATORY AND X-RAY FINDINGS: Sodium 136, potassium 4.7, chloride 104, CO2 of 24, BUN 30, creatinine 1.78, estimated GFR 38, glucose 185, and calcium 9.3. LFTs within normal limits. Troponin-I ranged between 0.033 to 0.014. Albumin 3.3 and lipase 15. CBC showed a white blood cell count 8.4, hemoglobin 14, hematocrit 42, MCV 100, and platelet count 211 with 76% neutrophils. Portable chest x-ray, dated 06/25/2019, showed cardiomegaly. Chronic changes in bilateral lung power. CT angiogram of the chest, dated 06/25/2019, showed filling defects in the right upper and lower lobes, consistent with pulmonary emboli. Multiple lung nodules concerning for metastatic process. Bilateral adrenal masses suspicious for metastatic process. EKG, dated 06/25/2019, by my interpretation shows sinus mechanism with heart rates in the 80s. Attenuated R-waves noted in the precordial leads. Right axis deviation. No acute ST-T wave changes appreciated. ASSESSMENT AND PLAN: 1. Acute right-sided pulmonary embolus with Eliquis failure. The patient will be admitted to the telemetry unit. We will continue Lovenox 120 mg subcutaneously q.12 h. We will consult Hematology Service for further recommendations given potential Eliquis failure. Check bilateral lower extremities for Doppler to rule out deep venous thrombosis. Continue oxygen supplementation to maintain O2 saturations greater than or equal to 90%. 2. Chest pain secondary to #1. Continue supportive management. Morphine sulfate 4 mg IV q.4 h. p.r.n. pain. Resume Bulger 10/325 mg one tablet p.o. q.6 h. p.r.n. pain. 3. Metastatic renal cell carcinoma. We will continue symptomatic and supportive management. Resume Cometriq 40 mg daily. Consult Medical Oncology Service for any further recommendations. 4. Chronic kidney disease, stage 3. Avoid nephrotoxic agents and limit contrast exposure. Serial creatinine monitoring. 5. [id number]-irkpedr hypoxic respiratory failure secondary to #1. We will continue oxygen supplementation as stated previously. Add DuoNebs q.4 h. p.r.n. 6. Diabetes mellitus, type 2, insulin requiring. Continue insulin sliding scale for reflexive coverage. Resume home insulin regimen. ADA diet. Serial Accu-Cheks a.c. and at bedtime. 7. Prophylaxis. Sequential compression devices while in bed. Pepcid 20 mg p.o. b.i.d. 8. Code status is full. Surrogate medical decision maker is the patient's spouse. Job ID: [id number]
--- NOTE | 2019-06-26 19:45 | CON ---
DATE OF CONSULTATION: 06/26/2019 HISTORY OF PRESENT ILLNESS: Mr. Wilks is a 73-year-old male with a long history of metastatic renal cell carcinoma, currently receiving outpatient treatment with monthly Opdivo as well as daily oral Cabometyx. Recently, on scans approximately 6 weeks ago at [facility], it was noted that he had some slow progression of tumor and it was recommended that we increase his dose of Cabometyx from 40 mg a day to 60 mg a day. He has had much fatigue and immobility because of this. 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 He was on 5 mg prednisone last week when I saw him, but it had been tapered down from 60 mg sometime back. When he decreased his prednisone from 5 mg to 4 mg, he noticed an increase in the swelling of his elbows and his wrist and has had increasing arm pain because of this. 3 to 4 days prior to admission, he noticed sudden right-sided chest pain. He had increasing shortness of breath with this as well. Eventually when he came to the emergency room, it was noted on CT angiogram that he had a right-sided pulmonary embolism. He is on Eliquis chronically at 2.5 mg p.o. b.i.d. because of pulmonary embolism diagnosed at [facility] several years ago, he states this pulmonary embolism was on the left side. He has been on Lovenox injections as well as oxygen and supportive care over the last 12 to 24 hours, and he states he is feeling better. His breathing is better on oxygen. His chest pain is still evident when he takes deep breaths, but he thinks it might be marginally improved. He denies fevers or chills. PAST MEDICAL HISTORY: 1. Metastatic renal-cell carcinoma, currently undergoing care between my office and [facility]. 2. History of pulmonary embolism in the past on the left side, on chronic Eliquis. 3. Hypertension. 4. Chronic renal insufficiency, status post nephrectomy. 5. Diabetes mellitus. 6. 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 7. Hyperlipidemia. CURRENT MEDICATIONS: 1. Tylenol 1000 mg p.o. q.6 hours p.r.n. 2. [place] p.r.n. 3. Lovenox 120 mg subcu b.i.d. 4. Pepcid 20 mg p.o. daily. 5. Proscar 5 mg p.o. daily. 6. Florinef 0.1 mg p.o. daily. 7. Lasix 20 mg p.o. daily. 8. Hydralazine 10 mg IV q.4 hours p.r.n. 9. Insulin sliding scale. 10. Ritalin 20 mg p.o. b.i.d. 11. Reglan 10 mg p.o. daily. 12. Morphine 6 mg IV q.2 hours p.r.n. 13. Multivitamin 1 tablet p.o. daily. 14. Nifedipine 60 mg p.o. daily. 15. Cabozantinib 40 mg p.o. daily. 16. Victoza 16 units subcu daily. 17. Zofran 4 mg p.o. q.6 hours p.r.n. 18. Zofran 4 mg IV q.6 hours. 19. Prednisone increased today by me to 20 mg p.o. daily. 20. Senokot 1 tab p.o. at bedtime. 21. Senokot 1 tab p.o. q.a.m. p.r.n. 22. Flomax 0.4 mg p.o. b.i.d. ALLERGIES: CIPROFLOXACIN. SOCIAL HISTORY: He lives in town with his , who is quite supportive, although she recently had a stem cell transplant for multiple myeloma. He has sons and [id number], who are also quite supportive in health care. He denies tobacco or alcohol use. FAMILY HISTORY: Noncontributory. REVIEW OF SYSTEMS: Otherwise 10-point review of systems is negative. Please see the history of present illness. PHYSICAL EXAMINATION: VITAL SIGNS: Temperature 99.3, pulse 75, respirations 18, O2 saturation 95% on 2 L nasal cannula, blood pressure 152/65. GENERAL: He is obese, quite pleasant, in no acute distress, somewhat tachypneic. HEENT: Extraocular muscles are intact. Pupils are equal, round and reactive to light. He has no oral cavity lesions. NECK: Supple without lymphadenopathy. CARDIOVASCULAR: Regular rhythm. LUNGS: Clear to auscultation bilaterally. ABDOMEN: Hypoactive bowel sounds. Obese, nontender. EXTREMITIES: No edema, but he does have swelling of his elbows and wrists bilaterally consistent with autoimmune arthritis. LABORATORY DATA: White blood cell count 6.5, hemoglobin 11.5, platelets 165. His electrolytes are normal with the exception of creatinine of 2.12 and glucose of 137. DIAGNOSTIC DATA: CT angiogram done in the emergency room showed a right lower lobe pulmonary embolism. ASSESSMENT: Mr. Wilks is a 73-year-old male with; 1. History of metastatic renal cell carcinoma, currently on treatment with Opdivo and Cabometyx. 2. Recurrent pulmonary embolism while on Eliquis at 2.5 mg p.o. b.i.d. 3. Obesity. 4. 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 5. Hypoxia secondary to the above. 6. Chest pain secondary to the above. PLAN: 1. He is already on Lovenox for the pulmonary embolism, which I would recommend continuing. 2. We discussed transfer to [facility], which at this point, I think is likely unnecessary given that he is being managed by the balloon artist here. 3. I would recommend increasing his steroids to prednisone 20 mg p.o. daily to help with the joint pain while continuing him on Lovenox. 4. He obviously continues to need oxygen and other supportive care. 5. We will follow with you. Job ID: [id number]
[2019-06-26] MEDS: Finasteride 5 MG TAB PO SCH (20:16)
[2019-06-26] MEDS: Famotidine 20 MG TAB PO SCH (20:17)
[2019-06-26] MEDS: Insulin Glargine 16 UNITS in Pre-Filled Syringe 1 EACH SC SCH (20:19)
--- NOTE | 2019-06-26 20:40 | CON ---
DATE OF CONSULTATION: HISTORY OF PRESENT ILLNESS: Nikolas Wilks presented with joint pain with steroid tapering. He has an immunotherapy-induced arthritis. He also had some shortness of breath and pleurisy. Reviewing the record from [facility], he has a chronic right lower lobe thrombus. He has a new right upper lobe thrombus per this CT done at [facility]. He subsequently has been admitted and placed on Lovenox. PAST MEDICAL HISTORY: Remarkable for, 1. Renal cell carcinoma. 2. Hypertension. 3. Diabetes. 4. Chronic kidney disease. 5. Lipid disorder. 6. History of nephrectomy. 7. History of bilateral knee surgery. 8. History of shoulder surgery. 9. History of left upper lobectomy. 10. History of hip arthroplasty. MEDICATIONS: Reviewed. ALLERGIES: REPORTS ALLERGIES TO CIPRO. FAMILY HISTORY: Negative for lung disease in early age. SOCIAL HISTORY: He is a former smoker. Does not drink frequently. REVIEW OF SYSTEMS: Otherwise negative. PHYSICAL EXAMINATION: GENERAL: He is mentally uncomfortable from his arthritis. He has been given a steroid injection this morning. VITAL SIGNS: He is afebrile, heart rate 78, respiratory rate 16, oximetry is 95% on 2 L, blood pressure 126/76. HEAD AND NECK: Unremarkable. LUNGS: Clear. HEART: Regular rhythm. ABDOMEN: Protuberant and nontender. EXTREMITIES: Without clubbing, cyanosis, or edema. Lower extremity Doppler showed no clot. IMPRESSION AND PLAN: 1. Thromboembolic disease. It is unclear whether or not the defects in his upper lobe that historically appear to be new were actually there on past CTs. [id number] comparison would be necessary to know. For now, he needs to be managed on Lovenox and then given a dose to take back to [facility]. 2. Immunotherapy-induced arthritis. Increasing his steroids will help this. Hopefully, he will be a candidate to go home on Wednesday. Job ID: [id number]
[2019-06-27 06:24] LABS: Anion Gap 14 mmol/L (10-20); BUN (Urea Nitrogen) 44 mg/dL (8.4-25.7); Calc. Creatinine Clearance 50 mL/min (70-130); Calcium 8.2 mg/dL (7.8-10.44); Carbon Dioxide 22 mmol/L (23-31); Chloride 104 mmol/L (98-107); Estimated GFR-MDRD 27; Glucose 247 mg/dL (83-110); Potassium 4.7 mmol/L (3.5-5.1); Sodium 135 mmol/L (136-145)
[2019-06-27] MEDS ORDERED: predniSONE 20 MG TAB PO SCH (08:00)
--- NOTE | 2019-06-27 08:35 | PDOC.MOPN ---
Interval History: he is feeling much better, no pain and breathing is better. he would like to go home - Vital Signs Vital Signs: Vital Signs (12 hours) Temp Pulse Resp BP Pulse Ox 06/27/19 06:07 97.5 F L 06/27/19 04:00 96.3 F L 58 L 16 134/65 95 Weight Weight 283 lb 14.4 oz - Physical Exam General: Alert HEENT: Atraumatic Lungs: Clear to auscultation Cardiovascular: Regular rate Abdomen: Normal bowel sounds Extremities: No clubbing, No cyanosis Skin: No rashes Neurological: Normal gait, Normal speech Psych/Mental Status: Mental status NL - Labs Result Diagrams: 06/26/19 06:19 06/27/19 05:16 Lab results: Laboratory Results - last 24 hr 06/27/19 05:56: POC Glucose 262 H 06/27/19 05:16: Sodium 135 L, Potassium 4.7, Chloride 104, Carbon Dioxide 22 L, Anion Gap 14, BUN 44 H, Creatinine 2.36 H, Estimated GFR (MDRD) 27, Glucose 247 H, Calcium 8.2 06/26/19 20:13: POC Glucose 370 H 06/26/19 18:17: POC Glucose 309 H 06/26/19 16:31: POC Glucose 300 H 06/26/19 10:31: POC Glucose 137 H A/P - Problem (1) Acute respiratory failure with hypoxia Current Visit: Yes Code(s): J96.01 - ACUTE RESPIRATORY FAILURE WITH HYPOXIA Status: Acute (2) Metastatic renal cell carcinoma Current Visit: Yes Code(s): C64.9 - MALIGNANT NEOPLASM OF UNSP KIDNEY, EXCEPT RENAL PELVIS Status: Acute (3) Pulmonary embolism Current Visit: Yes Code(s): I26.99 - OTHER PULMONARY EMBOLISM WITHOUT ACUTE COR PULMONALE Status: Acute Qualifiers: Chronicity: acute (4) CKD (chronic kidney disease) stage 3, GFR 30-59 ml/min Current Visit: No Status: Chronic (5) Diabetes mellitus, type II, insulin dependent Current Visit: No Code(s): E11.9 - TYPE 2 DIABETES MELLITUS WITHOUT COMPLICATIONS; Z79.4 - GROUP HOME (CURRENT) USE OF INSULIN Status: Chronic - Plan Plan: 1. d/c when pulm and primary team is ready 2. home on lovenox vs eliquis, discuss with pulmonary 3. f/u with [facility] next week
[2019-06-27 09:05] VITALS: BP 147/76; TEMP 97.8
[2019-06-27] MEDS: Enoxaparin Sodium 120 MG/0.8 ML SYRINGE SC SCH (09:06)
[2019-06-27] MEDS: Fludrocortisone Acetate 0.1 MG TAB PO SCH (09:06)
[2019-06-27] MEDS: HYDROcodone/Acetaminophen 10/325 mg Tablet PO SCH (09:06)
[2019-06-27] MEDS: Tamsulosin HCl 0.4 MG CAP PO SCH (09:08)
[2019-06-27] MEDS: hydrALAZINE 25 MG TAB PO SCH (09:08)
[2019-06-27] MEDS: NIFEdipine XL 60 MG TAB PO SCH (09:08)
[2019-06-27] MEDS: Metoclopramide HCl 10 MG TAB PO SCH (09:08)
[2019-06-27] MEDS: Multivit, Therapeutic 1 TAB PO SCH (09:08)
[2019-06-27] MEDS: Senokot 8.6 MG TAB PO SCH (09:09)
--- NOTE | 2019-06-28 04:14 | DIS ---
DATE OF ADMISSION: 06/25/2019 DATE OF DISCHARGE: 06/27/2019 DISCHARGE DIAGNOSES: 1. Acute on chronic respiratory failure with hypoxia secondary to pulmonary embolism. 2. History of metastatic renal cell carcinoma, on chemotherapy. 3. Chronic kidney disease state 3. 4. Diabetes mellitus. 5. Hypertension. 6. Arthritis. 7. Hyperlipidemia. VITAL SIGNS: Blood pressure 147/76, pulse 65, temperature 97.8, oxygen saturation 96% on room air. GENERAL: The patient is alert, awake, in no distress. CHEST: Normal vesicular breathing. HEART: Sound normal. ABDOMEN: Soft, benign, no tenderness, no organomegaly. EXTREMITIES: Negative edema of feet. LABORATORY DATA: CBC unremarkable except hemoglobin 11.5, platelets 165. BMP unremarkable except creatinine 2.36. Blood glucose 262. DVT study negative. Chest CTA findings consistent with pulmonary embolism. Findings are suspicious for lung adrenal metastasis. HOSPITAL COURSE: The patient, Lashaun Gonzales, is a known case of renal cell carcinoma, on chemotherapy, presented with right-sided chest pain. The patient was performed CTA chest which was positive for pulmonary embolism. The patient was taking Eliquis 2.5 at home. The patient evaluated by Hematology, Dr. Peterson, and Dr. Adrianna Amaya and recommended to continue Eliquis 5 mg b.i.d. and also advised to continue steroids and patient currently feeling better, chest pain resolved, saturating well on room air, mobilized, cleared by Hematology and Pulmonology to discharge home and to follow up as outpatient with [facility]. Patient has prescriptions for steroids and Eliquis at home. He will go 5 mg twice a day of Eliquis. Plan discussed with the patient and nursing staff in detail. Job ID: [id number]
== END 2019-06-27 12:25 | disposition home or self-care (01) | DRG 175 ==
LOC: ERS 06:50 → 2NO 10:06
PROVIDERS: ADMIT Family Medicine; ATTEND Family Medicine
DX: I26.99 Other pulmonary embolism without acute cor pulmonale (principal); J96.21 Acute and chronic respiratory failure with hypoxia; C64.9 Malignant neoplasm of unspecified kidney, except renal pelvis; C79.9 Secondary malignant neoplasm of unspecified site; C90.00 Multiple myeloma not having achieved remission; Z94.84 Stem cells transplant status; Z68.41 Body mass index [BMI] 40.0-44.9, adult; E11.22 Type 2 diabetes mellitus with diabetic chronic kidney disease; N18.3 Chronic kidney disease, stage 3 (moderate); I12.9 Hypertensive chronic kidney disease with stage 1 through stage 4 chronic kidney disease, or unspecified chronic kidney disease; M19.90 Unspecified osteoarthritis, unspecified site; E78.5 Hyperlipidemia, unspecified; Z96.642 Presence of left artificial hip joint; E66.9 Obesity, unspecified; Z79.01 Long term (current) use of anticoagulants; Z79.52 Long term (current) use of systemic steroids; Z79.899 Other long term (current) drug therapy; Z88.1 Allergy status to other antibiotic agents; Z87.891 Personal history of nicotine dependence; Z79.4 Long term (current) use of insulin
CPT/HCPCS: 36415; 36416; 71045; 71275; 80048; 80053; 82550; 82553; 83690; 84484; 85007; 85025; 85027; 93005; 93970; 94760; 96361; 96372; 96374; 96375; 96376; J1650; J1815; J2270; J2405; J2930; J7512; Q9966

== ENCOUNTER 2019-07-17 10:40 | Outpatient (CLI) | payer MEDICARE, OTHER ==
--- NOTE | 2019-07-17 11:34 | RAD ---
CHEST 2 VIEWS: COMPARISON: 08/31/2018. HISTORY: Dyspnea. FINDINGS: Cardiomegaly. Hyperinflation and chronic changes of the lung parenchyma. No pleural effusion or pneum othorax. Right humeral prosthesis is redemonstrated. IMPRESSION: Hyperinflation. Chronic changes. Transcribed Date/Time: 07/17/2019 12:03 PM
== END 2019-07-17 10:41 | disposition home or self-care (01) ==
LOC: RAD 10:40
PROVIDERS: ATTEND Internal Medicine Critical Care Medicine
DX: R06.00 Dyspnea, unspecified (principal); J98.4 Other disorders of lung
CPT/HCPCS: 71046

== ENCOUNTER 2019-10-22 16:27 | Observation (INO) | payer MEDICARE, OTHER ==
[~2019-10-22 16:27] MED LIST: Iopamidol-370 76% 500 ML 1 ML ONE
--- NOTE | 2019-10-22 16:48 | RAD ---
Chest 2 views History: Dyspnea. COMPARISON: 07/17/2019. FINDINGS: Cardiac silhouette is unremarkable. Widespread nodules and interstitial thickening througho ut each lung has progressed since the previous study, with overall increase in density. Mediastinum remains midline. No lobar consolidation or evidence of pneumothorax. Sclerotic metastases throughout the osseous structures faintly visualized. Ossification of anterior longitudinal ligament of the thoracic spine on the lateral view is consistent with diffuse idiopathic skeletal hyperostosis. IMPRESSION: Interval worsening of metastatic disease of the chest. Increased lung involvement likely results in dyspnea.
[2019-10-22 16:58] LABS: #Eosinphils 0.3 thou/uL (0.0-0.7); #Lymphocytes 1.2 thou/uL (1.20-3.40); #Monocytes 0.7 thou/uL (0.11-0.59); #Neutrophils 7.6 thou/uL (1.40-6.50); %Basophils 0.3 % (0.0-1.0); %Eosinophils 3.1 % (0.0-10.0); %Lymphocytes 12.1 % (21.0-51.0); %Monocytes 6.7 % (0.0-10.0); %Neutrophils 77.8 % (42.0-75.0); Hemoglobin 12.1 g/dL (14.0-18.0); Mean Corpuscular HGB CONC 32.2 g/dL (32.0-36.0); Mean Corpuscular Hemoglobin 32.7 pg (27.0-31.0); Mean Platelet Volume 6.4 fL (7.4-10.4); Platelet Count 317 thou/uL (130-400); Red Blood Cell (RBC) Count 3.71 mill/uL (4.70-6.10); White Blood Cell (WBC) Count 9.8 thou/uL (4.8-10.8)
[2019-10-22 17:23] LABS: ALT (SGPT) 18 U/L (8-55); AST (SGOT) 12 U/L (5-34); Albumin 3.4 g/dL (3.4-4.8); Alkaline Phosphatase 77 U/L (40-110); Anion Gap 14 mmol/L (10-20); BUN (Urea Nitrogen) 43 mg/dL (8.4-25.7); Bilirubin, Total 0.4 mg/dL (0.2-1.2); CK (CPK) 36 U/L (30-200); Calc. Creatinine Clearance 0 mL/min (70-130); Calcium 9.5 mg/dL (7.8-10.44); Carbon Dioxide 21 mmol/L (23-31); Chloride 104 mmol/L (98-107); Estimated GFR-MDRD 28; Globulin 3.2 g/dL (2.4-3.5); Glucose 422 mg/dL (83-110); Potassium 5.5 mmol/L (3.5-5.1); Protein, Total 6.6 g/dL (5.8-8.1); Sodium 133 mmol/L (136-145)
--- NOTE | 2019-10-22 20:32 | CT ---
CT arteriogram chest with IV contrast and 3-D imaging HISTORY: Dyspnea. Lung cancer. COMPARISON: 06/25/2019. FINDINGS: Small incompletely occlusive filling defects are present within the pulmonary arteries to t he right lower lobe and left lower lobe. Good contrast opacification of the thoracic aorta with normal branching great vessels at the aortic arch. Interval enlargement of the left hilar mass measuring up to 5.4 cm greatest diameter on the current e xam. Small amount of bilateral pleural fluid, right greater than left. Marked interval increase in size and number of multiple parenchymal masses throughout each lobe. The largest at the right posterolateral lung base is now 3.1 cm greatest diameter. The largest nodules in the left measure up to 1.6 cm. Old left posterior rib fractures. Within the partially visualized upper abdomen, low-density right adrenal mass now measures up to 6.4 cm greatest diameter. The inferior most images show masslike protrusion from the lateral cortex of the left kidney. Incompletely evaluated on this exam. IMPRESSION: Small bilateral lower lobe pulmonary emboli. Severe interval worsening of metastatic disease throughout the lungs. Enlarging right adrenal mass. Probable new left renal mass. For further characterization, please consider dedicated CT kidneys with out and with IV contrast on an elective basis.
[2019-10-22 22:54] VITALS: BMI 41.0
[2019-10-22] MEDS ORDERED: Sodium Chloride 0.9% 1,000 ML IV SCH (22:56)
[2019-10-23] MEDS ORDERED: Dextrose 5% in Water 1,000 ML IV PRN (00:42)
[2019-10-23] MEDS ORDERED: Acetaminophen 500 MG TAB PO PRN (00:42)
[2019-10-23] MEDS ORDERED: Benzonatate 100 MG CAP PO PRN (00:42)
[2019-10-23] MEDS ORDERED: Dextrose 50% Abboject 50 ML SYRINGE SLOW IVP PRN (00:42)
[2019-10-23] MEDS ORDERED: Ondansetron ODT 4 MG TAB PO PRN (00:42)
[2019-10-23] MEDS ORDERED: Ondansetron PF 4 MG/2 ML Vial IVP PRN (00:42)
[2019-10-23] MEDS ORDERED: HYDROcodone/Acetaminophen 10/325 mg Tablet PO PRN (00:42)
[2019-10-23] MEDS ORDERED: predniSONE 20 MG TAB PO SCH (01:00)
[2019-10-23] MEDS: Sodium Chloride 0.9% 1,000 ML IV SCH ×2 (01:17→15:55)
--- NOTE | 2019-10-23 01:35 | HP ---
PRIMARY CARE PROVIDER: Jose Luis Whelan MD. PRIMARY ONCOLOGIST: Krystin Peterson MD. CHIEF COMPLAINT: Shortness of breath. HISTORY OF PRESENT ILLNESS: This is a 74-year-old male who presents to [facility] Emergency Department with significant history of metastatic renal cell carcinoma, currently receiving chemotherapy at [facility]. The patient states he is currently off chemotherapy and will transition to a new regimen on 10/26/2019. The patient states the regimen was adjusted after progression of his current metastatic process. The patient admitted to increasing shortness of breath, worsening in the last 24 hours, associated with dry cough, but no hemoptysis or documented fever. The patient does admit to some chest pain, but not beyond his chronic chest pain and shortness of breath previously documented. The patient states he has been compliant with his chronic medication regimen and recently was placed on an oral antibiotic course. In the emergency room, the patient underwent general evaluation including CT imaging of the chest showing progression of previous metastatic process of bilateral lung power and left hilar mass. The patient was also noted with chronic pulmonary embolus previously noted on prior imaging. The patient received intravenous normal saline due to suspected acute kidney injury in the context of chronic kidney disease. The patient was transferred to the medical floor for further evaluation. PAST MEDICAL HISTORY: 1. Metastatic renal cell carcinoma with current chemotherapy. 2. Diabetes mellitus type 2, insulin requiring. 3. Hyperlipidemia. 4. Hypertension. 5. Pulmonary embolus with current Eliquis therapy. 6. Hypertension. 7. Chronic kidney disease stage 3. 8. Severe osteoarthritis. 9. Hyperlipidemia. 10. Obstructive sleep apnea with nocturnal CPAP. PAST SURGICAL HISTORY: 1. Status post right nephrectomy. 2. Status post bilateral knee surgery. 3. Status post right shoulder repair. 4. Status post left upper lobectomy. 5. Status post left total hip arthroplasty. CURRENT MEDICATIONS: 1. Eliquis 2.5 mg p.o. b.i.d. 2. Finasteride 5 mg p.o. at bedtime. 3. Florinef 0.1 mg p.o. daily. 4. [place] 10/325 mg 1 tablet p.o. t.i.d. p.r.n. pain. 5. Ritalin 20 mg p.o. b.i.d. 6. Reglan 10 mg p.o. daily. 7. Multivitamin 1 tablet p.o. daily. 8. Senna 1 tablet p.o. q.a.m. 9. Hydralazine 25 mg p.o. t.i.d. 10. Procardia 60 mg p.o. daily. 11. Prednisone 5 mg p.o. daily. 12. Tamsulosin 0.4 mg p.o. b.i.d.. 13. Tresiba FlexTouch 12 units subcutaneously at bedtime. 14. Victoza 16 units subcutaneously daily. ALLERGIES: CIPROFLOXACIN. FAMILY HISTORY: No inheritable diseases per the patient report. SOCIAL HISTORY: , accompanied by his in the hospital. Former tobacco use, none currently. Occasional alcohol use. No illicit drug use. REVIEW OF SYSTEMS: CONSTITUTIONAL: Negative for weight loss or gain, ability to conduct usual activities. SKIN: Negative for rash, itching. EYES: Negative for double vision, pain. ENT/MOUTH: Negative for nose bleeding, neck stiffness, pain, tenderness. CARDIOVASCULAR: Negative for palpitations, dyspnea on exertion, orthopnea. RESPIRATORY: Negative for shortness of breath, wheezing, cough, hemoptysis, fever or night sweats. GASTROINTESTINAL: Negative for poor appetite, abdominal pain, heartburn, nausea, vomiting, constipation, or diarrhea. GENITOURINARY: Negative for urgency, frequency, dysuria, nocturia. MUSCULOSKELETAL: Negative for pain, swelling. NEUROLOGIC/PSYCHIATRIC: Negative for anxiety, depression. ALLERGY/IMMUNOLOGIC: Negative for skin rash, bleeding tendency. Otherwise negative except as stated per HPI. PHYSICAL EXAMINATION: VITAL SIGNS: On admission, blood pressure 183/72, pulse 78, respiratory rate is 22, temperature 98.4 degrees Fahrenheit, O2 saturation 95% on 3 L/minute by nasal cannula. GENERAL APPEARANCE: This is a 74-year-old male, alert and oriented x3, pleasant, in no acute distress. HEENT: Pupils are equal, round, reactive to light and accommodation. Extraocular muscles are intact. No scleral icterus. No conjunctival injection. Nares patent. OP is clear. Teeth in good repair. NECK: Supple. No cervical adenopathy. No thyromegaly. No carotid bruits. No JVD appreciated. Cervical spine with full active and passive range of motion. No meningeal signs noted. CHEST: Lungs are clear to auscultation bilaterally. Diminished breath sounds in the bases. CARDIOVASCULAR: S1-S2 with 1/6 to 2/6 systolic ejection murmur at the apex. ABDOMEN: Obese, soft, nontender, and nondistended. Landmarks are difficult to palpate due to the patient's body habitus. No rebound or guarding noted. EXTREMITIES: Warm and dry with fair turgor. Mild edema to the ankle region bilaterally. Pulses palpable distally at the dorsalis pedis, posterior tibial, and popliteal arteries bilaterally. Capillary refill less than 2 seconds. NEUROLOGIC: Cranial nerves 2 through 12 are grossly intact. No focal or lateralizing signs appreciated. PERTINENT LABORATORY AND X-RAY FINDINGS: Sodium 133, potassium 5.5, chloride 104, CO2 of 21, BUN 43, creatinine 2.27, estimated GFR of 28, glucose 422, calcium 9.5. LFTs within normal limits. CBC showed a white blood cell count of 9.8, hemoglobin 12.1, hematocrit 38, MCV 101, platelet count 317 with 78% neutrophils. Portable chest x-ray dated 10/22/2019, showed interval worsening of metastatic process of the chest. CT angiogram of the chest dated 10/22/2019 showed progression of metastatic process of the lung with left hilar mass noted 5.4 cm. Marked interval increase in multiple parenchymal masses throughout each lobe. Right adrenal mass measuring 6.4 cm. ASSESSMENT AND PLAN: 1. Metastatic renal cell carcinoma with progression. The patient will be observed on the medical floor. We will continue symptomatic and supportive management. Bronchodilator therapy as needed. Consult Medical Oncology Service for any further recommendations. 2. [id number] dyspnea. Continue prednisone 40 mg p.o. daily. DuoNeb q.4 hours p.r.n. Oxygen supplementation to maintain O2 saturation greater than or equal to 90%. 3. Acute kidney injury on chronic kidney disease stage 3-4. Continue intravenous normal saline at 75 mL per hour. Avoid nephrotoxic agents and limit contrast exposure. Repeat creatinine in the a.m. 4. Hyperkalemia. Continue IV fluids as outlined above. Serial potassium monitoring. Suspect secondary to acute kidney injury. 5. Diabetes mellitus type 2, insulin requiring. Insulin sliding scale for reflexive coverage. Resume home insulin regimen in the a.m. ADA diet. 6. Prophylaxis. Sequential compression devices while in bed. Pepcid 20 mg p.o. b.i.d. 7. Code status is full. Surrogate medical decision maker is the patient's spouse. Job ID: [id number]
[2019-10-23] MEDS: hydrALAZINE 20 MG/ML VIAL SLOW IVP PRN (05:22)
[2019-10-23 05:41] LABS: Band 18 % (5-11); Eosinophils 1 % (0-10); Hemoglobin 11.6 g/dL (14.0-18.0); Lymphocytes 8 % (21-51); MDiff Complete? YES; Mean Corpuscular HGB CONC 32.4 g/dL (32.0-36.0); Mean Platelet Volume 6.5 fL (7.4-10.4); Neutrophil 73 % (42-75); Platelet Count 280 thou/uL (130-400); Platelet Morphology Comment Appears Adequate; RBC Distribution Width 14.8 % (11.5-14.5); Red Blood Cell (RBC) Count 3.53 mill/uL (4.70-6.10); White Blood Cell (WBC) Count 8.2 thou/uL (4.8-10.8)
[2019-10-23 05:46] LABS: Anion Gap 15 mmol/L (10-20); BUN (Urea Nitrogen) 38 mg/dL (8.4-25.7); Calc. Creatinine Clearance 63 mL/min (70-130); Calcium 9.2 mg/dL (7.8-10.44); Carbon Dioxide 19 mmol/L (23-31); Chloride 107 mmol/L (98-107); Estimated GFR-MDRD 38; Glucose 252 mg/dL (83-110); Potassium 5.3 mmol/L (3.5-5.1); Sodium 136 mmol/L (136-145)
[2019-10-23] MEDS: HumaLOG 300 UNITS/3 ML VIAL SC PRN ×5 (06:16→23:59)
[2019-10-23] MEDS ORDERED: LIRAGLUTIDE SC SCH (09:00)
[2019-10-23] MEDS: Apixaban 5 MG TAB PO SCH ×2 (11:19→21:28)
[2019-10-23] MEDS: DULoxetine 60 MG CAP PO SCH (11:19)
[2019-10-23] MEDS: Multivit, Therapeutic 1 TAB PO SCH (11:20)
[2019-10-23] MEDS: NIFEdipine XL 60 MG TAB PO SCH (11:20)
[2019-10-23] MEDS: Metoclopramide HCl 10 MG TAB PO SCH (11:20)
[2019-10-23] MEDS: hydrALAZINE 25 MG TAB PO SCH ×3 (11:20→21:29)
[2019-10-23] MEDS: Tamsulosin HCl 0.4 MG CAP PO SCH ×2 (11:21→21:30)
[2019-10-23] MEDS: Famotidine 20 MG TAB PO SCH (13:16)
[2019-10-23] MEDS: predniSONE 20 MG TAB PO SCH (13:23)
--- NOTE | 2019-10-23 17:27 | CON ---
DATE OF CONSULTATION: REASON FOR CONSULTATION: Renal cell carcinoma. HISTORY OF PRESENT ILLNESS: Mr. Wilks is a pleasant 74-year-old gentleman who has metastatic renal cell carcinoma with pulmonary mets. He was on Opdivo and cabozantinib, but had recent progression in September. He was seen by [facility] who recommended starting Afinitor and lenvatinib. He has yet to receive one of the medications, so he has been off chemotherapy for several weeks. He has a history of PE in his lung, and is currently on Eliquis. He presented to the emergency room on Wednesday with worsening shortness of breath. He underwent a chest x-ray which showed the worsening of metastatic disease. CT angio also confirmed progression in the lungs as well as enlarging right adrenal mass and new left renal mass. His kidney function was slightly worse on arrival to the emergency room with a creatinine of 2.27 and potassium was slightly elevated. He was admitted for shortness of breath and dehydration. He has been on IV fluids with slight improvement of his kidney function. He has no complaints of shortness of breath at this time. However, he is resting comfortably in the bed. His gets dyspneic when he tries to walk. He has home O2 at the house, which he feels does not help. PAST MEDICAL HISTORY: 1. Metastatic renal cell carcinoma with recent progression on Opdivo and cabozantinib. 2. Autoimmune arthritis, on long-term prednisone. 3. Diastolic dysfunction with volume overload. 4. Chronic shortness of breath. 5. History of pulmonary emboli. 6. Chronic kidney disease 3. 7. Hypertension. 8. Diabetes. 9. Hyperlipidemia. 10. Sleep apnea. PAST SURGICAL HISTORY: 1. Right nephrectomy. 2. Left upper lobectomy. 3. Bilateral knee replacement. 4. Rotator cuff repair. 5. Right hip replacement. ALLERGIES: TO CIPRO. HOME MEDICATIONS: 1. Cymbalta. 2. Finasteride. 3. Lasix. 4. Apresoline. 5. [place]. 6. Tresiba. 7. Victoza. 8. Ritalin. 9. Reglan. 10. Multivitamins. 11. Procardia. 12. Prednisone. 13. Senna. 14. Flomax. 15. Eliquis. FAMILY HISTORY: Brother had multiple myeloma. SOCIAL HISTORY: , has 3 children. Former smoker. Social drinker. No illicit drug use. REVIEW OF SYSTEMS: A 10-point review of systems is negative except for noted in HPI. PHYSICAL EXAMINATION: VITAL SIGNS: Temperature 98.2, pulse is 71, respiratory rate 20, BP is 140/71, and he is 94% on 3 L. GENERAL: This is an obese male, in no acute distress. HEENT: Normocephalic and atraumatic. Pupils are equal and reactive to light. NECK: Supple. CV: Regular rate and rhythm. LUNGS: Diminished. ABDOMEN: Obese and nontender. Bowel sounds are positive. EXTREMITIES: He has 1+ edema in his feet. SKIN: No rash. Scattered bruising. NEUROLOGIC: Nonfocal. PERTINENT LABORATORY DATA AND X-RAYS: Current WBCs are 8.2, hemoglobin 11.6, hematocrit 35.9, platelet count is 280,000, 73% neutrophils, 18% bands, and 8% lymphocytes. Sodium is 136, potassium 5.3, chloride 107, CO2 is 19, BUN is 38, creatinine 1.76, and calcium 9.2. Bilirubin 0.4, AST is 12, ALT is 18, and alkaline phosphatase is 77. Creatine kinase is 36. Troponin is negative. Serum total protein 6.6, albumin 3.4, and globulin 3.2. Radiology per HPI. ASSESSMENT: 1. Metastatic renal cell carcinoma with recent progression. 2. Acute kidney injury. 3. Vnjxe-[id number] shortness of breath. DISCUSSION: The patient awaits his new oral chemotherapy regimen consisting of Afinitor and lenvatinib. His prednisone has been increased from 5 mg daily to 40 mg daily. His shortness of breath is most certainly due to his progression of cancer in his lungs. He has oxygen at home. His kidney injury has improved with IV fluids. Hopefully, Dr. Berman has been consulted. He can go home once he has been cleared by Dr. Berman. They are awaiting one of his oral chemo medications and will start once that has arrived. Case has been discussed with Dr. Peterson. Thank you for the consult. Job ID: [id number]
--- NOTE | 2019-10-23 18:13 | PDOC.EVN ---
Event Note - Event Note Event Note: encounter time: 10/23/2019 1030AM inherited patient this morning. On encounter, laying comfortably in bed and has no complaints #T2DM -hyperglycemia exacerbated by prednisone -started on humalog 8u ac in addition to preexisting lantus 12u so to have 1:2 ratio between long acting and short acting in context of prednisone. kept correction dose as is #DIANA creatinine downtrending. continuing to hold nephrotoxic agents including lasix will continue gentle fluid supplementation #metastatic renal cell carcinoma -per nurse, patient will obtain new chemo and start tomorrow (afinitor)
[2019-10-23] MEDS ORDERED: EVEROLIMUS 5 MG PO SCH (21:00)
[2019-10-23] MEDS ORDERED: Doxylamine 25 MG TAB PO SCH (21:00)
[2019-10-23] MEDS ORDERED: Insulin Glargine 12 UNITS in Pre-Filled Syringe 1 EACH SC SCH (21:00)
[2019-10-23] MEDS ORDERED: Finasteride 5 MG TAB PO SCH (21:00)
[2019-10-23] MEDS ORDERED: Senokot 8.6 MG TAB PO SCH (21:00)
[2019-10-23] MEDS ORDERED: Non-Formulary Item 1 EACH (Insulin Degludec [Tresiba Flextouch U-100] 12 UNIT) SQ SCH (21:00)
--- NOTE | 2019-10-23 22:28 | ULT ---
Renal ultrasound: 10/23/2019 COMPARISON:None available HISTORY:Renal failure TECHNIQUE: Multiplanar grayscale sonographic imaging of the kidneys and urinary bladder obtained. FINDINGS: The right kidney is nonvisualized. There is a soft tissue mass in the right renal fossa kayla suring 5.8 cm, suspicious for malignancy. This could represent an adrenal mass. Urinary bladder volume is 205 cc. There is an echogenic focus within the urinary bladder measuring 1 cm, which may represent a mass within the urinary bladder. Direct visualization is advised. Left kidney measures 14.9 cm in craniocaudal dimension. A solid appearing 2.2 cm mass is seen in the region of the upper pole left kidney. No left-sided hydronephrosis. IMPRESSION: Soft tissue mass in the right renal fossa. Solid mass associated with the upper pole left kidney. Findings are suspicious for malignancy. CT with and without contrast suggested. Possible neoplastic mass within the urinary bladder as well.
--- NOTE | 2019-10-24 01:07 | CON ---
DATE OF CONSULTATION: SERVICE: Renal Medicine. HISTORY OF PRESENT ILLNESS: Mr. Wilks is a 74-year-old white male, who was admitted for shortness of breath. He has history of renal cancer with metastasis to the lungs and this has been progressive. For that reason, he has been changed to a new chemotherapy regimen by his oncologist at [facility]. We are now being consulted for his acute kidney injury. Please note, he underwent a CT imaging of the chest, which showed progression of previous metastatic processes-bilateral lung power and left hilar mass. REVIEW OF SYSTEMS: Positive for shortness of breath. No gross hematuria. No dysuria. No urinary frequency. No syncopal episode. No productive cough. No diarrhea. No fever or chills. No hematochezia. No melena. No hematemesis. No productive cough. No abdominal pain. Appetite and energy level are fair. PAST MEDICAL HISTORY: 1. Metastatic renal carcinoma with chemotherapy. 2. Obstructive sleep apnea, on CPAP. 3. Hyperlipidemia. 4. Severe DJD. 5. Chronic renal failure. 6. Pulmonary embolus with Eliquis therapy. 7. Hypertension. 8. Hyperlipidemia. 9. Type 2 diabetes mellitus. 10. BPH. PAST SURGICAL HISTORY: Status post right nephrectomy, status post bilateral knee surgery, status post right shoulder repair, status post left upper lobectomy, status post left hip total arthroplasty, status post colonoscopy, status post lung biopsy. HOME MEDICATIONS: Includes; 1. Eliquis 2.5 mg p.o. b.i.d. 2. Florinef 0.1 mg daily. 3. Finasteride 5 mg at bedtime. 4. [place] 10/325 t.i.d. p.r.n. 5. Ritalin 20 p.o. b.i.d. 6. Reglan 10 mg daily. 7. Multivitamin daily. 8. Hydralazine 25 mg p.o. t.i.d. 9. Procardia 60 mg daily. 10. Prednisone currently 40 mg tablet daily. 11. Tamsulosin 0.4 mg p.o. b.i.d. 12. Tresiba 12 units subcu at bedtime. 13. Victoza 16 units subcu daily. ALLERGIES: CIPRO. TRAUMA: None. IMMUNIZATIONS: Up-to-date. HOSPITALIZATIONS: Please see past medical history. SOCIAL HISTORY: The patient is . Lives in [place]. He did smoke previously, but currently not smoking. Rare alcohol intake. 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 Education, college graduate. No IV drug abuse, 3 children. Sedentary lifestyle. FAMILY HISTORY: No family history of ESRD. PHYSICAL EXAMINATION: VITAL SIGNS: Blood pressure is noted at 165/68, heart rate 71, respiratory rate 16, temperature 97.9, pulse ox 94%. GENERAL: The patient is awake, obese, comfortable, not in overt distress. SKIN: Adequate turgor. HEENT: He has pinkish conjunctivae. Anicteric sclerae. No neck mass. No carotid bruits. No JVD. CHEST: No deformities. LUNGS: Clear breath sounds. No wheezing. No crackles. HEART: Normal sinus rhythm. No murmur. No gallops. No rubs. ABDOMEN: Globular, soft, nontender, no masses. EXTREMITIES: No edema. No deformities. LABORATORY DATA: Laboratories of October 23, 2019; white count 8.2, hemoglobin 11.6, sodium 136, potassium 5.3, chloride 107, carbon dioxide 19, BUN is 38, creatinine 1.76, glucose 252, calcium 9.2. ASSESSMENT AND PLAN: 1. Acute kidney injury on top of his chronic renal failure. The patient was initially admitted with a creatinine of 2.27 and with IV hydration, this did improve to 1.76. In addition, hyperkalemia has also improved from 5.5 to 5.3. We will continue with current management. No indication for any dialytic intervention. Continue gentle volume repletion. Please note, we will hold off any diuretics or any RAJAN inhibitors for this patient for the moment. The diagnosis and prognosis are explained to the patient and . 2. Renal cancer with lung metastasis. Currently, on chemotherapy. Oncology has been consulted. In addition, he follows up with [facility] Oncology Services. 3. Agree to recheck base met and CBC in a.m. Job ID: [id number]
[2019-10-24] MEDS: HumaLOG 300 UNITS/3 ML VIAL SC PRN (04:12)
[2019-10-24] MEDS: hydrALAZINE 20 MG/ML VIAL SLOW IVP PRN (04:17)
[2019-10-24 05:14] LABS: #Eosinphils 0.1 thou/uL (0.0-0.7); #Lymphocytes 1.2 thou/uL (1.20-3.40); #Monocytes 0.6 thou/uL (0.11-0.59); #Neutrophils 8.3 thou/uL (1.40-6.50); %Basophils 0.1 % (0.0-1.0); %Eosinophils 0.7 % (0.0-10.0); %Lymphocytes 11.9 % (21.0-51.0); %Monocytes 6.3 % (0.0-10.0); Hemoglobin 11.1 g/dL (14.0-18.0); Mean Corpuscular HGB CONC 32.6 g/dL (32.0-36.0); Mean Corpuscular Hemoglobin 33.1 pg (27.0-31.0); Mean Platelet Volume 6.4 fL (7.4-10.4); Platelet Count 309 thou/uL (130-400); RBC Distribution Width 14.8 % (11.5-14.5); Red Blood Cell (RBC) Count 3.37 mill/uL (4.70-6.10); White Blood Cell (WBC) Count 10.2 thou/uL (4.8-10.8)
[2019-10-24 05:35] LABS: Anion Gap 16 mmol/L (10-20); BUN (Urea Nitrogen) 43 mg/dL (8.4-25.7); Calc. Creatinine Clearance 53 mL/min (70-130); Calcium 9.4 mg/dL (7.8-10.44); Carbon Dioxide 21 mmol/L (23-31); Chloride 106 mmol/L (98-107); Estimated GFR-MDRD 31; Glucose 263 mg/dL (83-110); Magnesium 1.8 mg/dL (1.6-2.6); Sodium 138 mmol/L (136-145)
[2019-10-24] MEDS: Sodium Chloride 0.9% 1,000 ML IV SCH (06:12)
[2019-10-24] MEDS: NIFEdipine XL 60 MG TAB PO SCH (08:30)
[2019-10-24] MEDS: Multivit, Therapeutic 1 TAB PO SCH (08:30)
[2019-10-24] MEDS: HumaLOG 300 UNITS/3 ML VIAL SC SCH ×2 (08:30→11:57)
[2019-10-24] MEDS: predniSONE 20 MG TAB PO SCH (08:32)
[2019-10-24] MEDS: hydrALAZINE 25 MG TAB PO SCH (08:32)
[2019-10-24] MEDS: Famotidine 20 MG TAB PO SCH (08:32)
[2019-10-24] MEDS: Tamsulosin HCl 0.4 MG CAP PO SCH (08:33)
[2019-10-24] MEDS: Apixaban 5 MG TAB PO SCH (08:33)
[2019-10-24] MEDS: DULoxetine 60 MG CAP PO SCH (08:33)
[2019-10-24] MEDS: Metoclopramide HCl 10 MG TAB PO SCH (08:33)
--- NOTE | 2019-10-24 09:10 | PRG ---
DATE OF SERVICE: 10/24/2019 SUBJECTIVE: Mr. Wilks is a 74-year-old white male with history of renal cancer with pulmonary metastasis. We are seeing him for his chronic renal failure. I did notice the creatinine has been fluctuating. He does follow up with the parking meter attendant in [place]. His urine sediment was relatively benign making acute tubular necrosis less likely. Report of the renal ultrasound done on October 23, 2019, showed a soft tissue mass in the right renal fossa with a solid mass associated with the upper pole of the left kidney. The patient voices no new complaints. He has no chest pain or shortness of breath. OBJECTIVE: VITAL SIGNS: Blood pressure is 164/74 with heart rate of 56, respiratory rate 16, temperature 97.6, and pulse ox 94%. GENERAL: The patient is awake, alert, comfortable, on nasal BiPAP. SKIN: Adequate turgor. Obese. HEENT: Pinkish conjunctivae. Anicteric sclerae. NECK: No neck mass. No carotid bruits. No JVD. CHEST: No deformities. LUNGS: Clear breath sounds. HEART: Normal sinus rhythm. No murmur. No gallops. No rubs. ABDOMEN: Globular, soft, nontender. No masses. EXTREMITIES: No edema. No deformities. MEDICATIONS: Medications of October 24, 2019, were reviewed. LABORATORY DATA: Laboratories of October 24, 2019, showed white count 10.2, hemoglobin 11.1. Sodium 138, potassium 5, chloride 106, carbon dioxide 21, BUN is 34, creatinine 1.84, this was on September 20, 2019. On October 24, 2019, potassium was 5, creatinine was noted at 2.1. ASSESSMENT AND PLAN: 1. Chronic renal failure-consider possibility of hypertensive nephropathy with this patient. Continue supportive care. Creatinine is near baseline. There is no indication for any dialytic intervention. Continue gentle volume repletion. 2. Renal cancer with pulmonary metastasis, supportive care. Currently, on chemotherapy. The patient if discharged will follow up with his renal physician in [place]. Job ID: [id number]
[2019-10-24 09:35] LABS: Bacteria/HPF None Seen HPF (None Seen); Bilirubin Negative (Negative); Blood, Urine Negative (Negative); Clarity Clear (Clear); Glucose, Urine (Dipstick) 200 mg/dL (Negative); Leukocyte Negative Leu/uL (Negative); Nitrite Negative (Negative); Protein, Urine (Dipstick) 100 mg/dL (Neg-Trace); RBC/HPF 0-3 HPF (0-3); Squamous Epithelial None Seen HPF (0-3); Urobilinogen Normal mg/dL (Less than 2); WBC/HPF 0-3 HPF (0-3)
[2019-10-24 11:56] VITALS: BP 160/71; TEMP 97.5
--- NOTE | 2019-10-25 03:12 | DIS ---
DATE OF ADMISSION: 10/22/2019 DATE OF DISCHARGE: 10/24/2019 DISCHARGE DIAGNOSES: 1. Metastatic renal cell carcinoma, on chemo currently. 2. Type 2 diabetes mellitus, insulin dependent. 3. Hypertension. 4. Hyperlipidemia. 5. Recent pulmonary embolism, on Eliquis. 6. Chronic kidney disease, stage 3. 7. Obstructive sleep apnea, on CPAP. HOSPITAL COURSE: This is a 74-year-old male with metastatic renal cell cancer and mets to the lungs, admitted for observation and symptomatic and supportive management for his shortness of breath as his chief complaint. The patient has chronic dyspnea and oxygen-dependent respiratory failure and baseline shortness of breath at rest. He did not have any worsening of his pulmonary situation. He did receive chemo overnight in pill form/Afinitor. He will be following with his baseball winder as well as oncologist at [facility]. The patient is hemodynamically stable to be discharged home today. DISCHARGE INSTRUCTIONS: Activity as tolerated. Regular diet. Follow up with the primary care physician in 1 week. Follow up with the baseball winder at [facility] as scheduled before. He will be getting his chemo medication/pill from [facility] to continue at home. Discharge time took over 30 minutes. Job ID: [id number] MTDD
== END 2019-10-24 13:02 | disposition home or self-care (01) ==
LOC: ERS 16:27 → SURG A 21:04
PROVIDERS: ADMIT Internal Medicine; ATTEND Internal Medicine
DX: J96.90 Respiratory failure, unspecified, unspecified whether with hypoxia or hypercapnia (principal); C64.9 Malignant neoplasm of unspecified kidney, except renal pelvis; C78.00 Secondary malignant neoplasm of unspecified lung; I12.9 Hypertensive chronic kidney disease with stage 1 through stage 4 chronic kidney disease, or unspecified chronic kidney disease; E11.22 Type 2 diabetes mellitus with diabetic chronic kidney disease; N18.4 Chronic kidney disease, stage 4 (severe); N17.9 Acute kidney failure, unspecified; E78.5 Hyperlipidemia, unspecified; G47.33 Obstructive sleep apnea (adult) (pediatric); E87.5 Hyperkalemia; E86.0 Dehydration; M13.80 Other specified arthritis, unspecified site; E11.65 Type 2 diabetes mellitus with hyperglycemia; N40.0 Benign prostatic hyperplasia without lower urinary tract symptoms; Z86.711 Personal history of pulmonary embolism; Z87.891 Personal history of nicotine dependence; Z79.01 Long term (current) use of anticoagulants; Z79.4 Long term (current) use of insulin; Z79.52 Long term (current) use of systemic steroids; Z79.899 Other long term (current) drug therapy; Z88.1 Allergy status to other antibiotic agents; Z90.5 Acquired absence of kidney; Z90.2 Acquired absence of lung [part of]; Z99.81 Dependence on supplemental oxygen; Z99.89 Dependence on other enabling machines and devices
CPT/HCPCS: 71046; 71275; 76770; 80048 ×2; 80053; 81001; 82550; 82962 ×2; 83735; 84484; 85007; 85025 ×2; 85027; 87804 ×2; 93005; 96361 ×3; 96374; 96376; 99285; G0378 ×3; 36415; 36416; 96360; J0360; J1815; J7512; Q9967

== ENCOUNTER 2020-01-06 17:32 | Inpatient (IN) | payer MEDICARE, OTHER ==
[~2020-01-06 17:32] MED LIST changes: -Iopamidol-370 76% 500 ML 1 ML ONE; +Ondansetron PF 4 MG/2 ML Vial ONE; +PHENYLEPHRINE-NS 100 MCG/ML 10 ML SYRINGE ONE; +PROPOFOL 200 MG/20 ML VIAL ONE; +Rocuronium Bromide 10 MG/ML (10ML VIAL) ONE; +diphenhydrAMINE 50 MG/ML VIAL ONE
[2020-01-06] MEDS ORDERED: Acetaminophen 500 MG TAB ONE (17:56)
[2020-01-06 18:13] LABS: #Lymphocytes 0.8 thou/uL (1.20-3.40); #Monocytes 0.5 thou/uL (0.11-0.59); #Neutrophils 12.7 thou/uL (1.40-6.50); %Basophils 0.1 % (0.0-1.0); %Eosinophils 0.2 % (0.0-10.0); %Lymphocytes 5.4 % (21.0-51.0); %Monocytes 3.6 % (0.0-10.0); %Neutrophils 90.7 % (42.0-75.0); Hemoglobin 12.9 g/dL (14.0-18.0); Mean Corpuscular HGB CONC 31.5 g/dL (32.0-36.0); Mean Corpuscular Hemoglobin 31.1 pg (27.0-31.0); Mean Corpuscular Volume 98.8 fL (78.0-98.0); Mean Platelet Volume 6.9 fL (7.4-10.4); Platelet Count 302 thou/uL (130-400); RBC Distribution Width 16.7 % (11.5-14.5); Red Blood Cell (RBC) Count 4.14 mill/uL (4.70-6.10); White Blood Cell (WBC) Count 13.9 thou/uL (4.8-10.8)
[2020-01-06 18:31] LABS: ALT (SGPT) 339 U/L (8-55); AST (SGOT) 315 U/L (5-34); Alkaline Phosphatase 374 U/L (40-110); Anion Gap 19 mmol/L (10-20); BUN (Urea Nitrogen) 32 mg/dL (8.4-25.7); Bilirubin, Total 3.3 mg/dL (0.2-1.2); Calc. Creatinine Clearance 0 mL/min (70-130); Calcium 9.6 mg/dL (7.8-10.44); Carbon Dioxide 22 mmol/L (23-31); Chloride 103 mmol/L (98-107); Estimated GFR-MDRD 29; Globulin 3.8 g/dL (2.4-3.5); Glucose 171 mg/dL (83-110); Lipase 254 U/L (8-78); Potassium 5.6 mmol/L (3.5-5.1); Protein, Total 7.8 g/dL (5.8-8.1); Sodium 138 mmol/L (136-145)
[2020-01-06] MEDS ORDERED: Piperacillin/Tazobactam 4.5 GM VIAL ONE (18:37)
[2020-01-06 19:06] LABS: Bilirubin Negative (Negative); Blood, Urine Negative (Negative); Clarity Clear (Clear); Glucose, Urine (Dipstick) 30 mg/dL (Negative); Leukocyte Negative Leu/uL (Negative); Nitrite Negative (Negative); Protein, Urine (Dipstick) 200 mg/dL (Neg-Trace); RBC/HPF 0-3 HPF (0-3); Squamous Epithelial 0-3 HPF (0-3); Urobilinogen Normal mg/dL (Less than 2); WBC/HPF 0-3 HPF (0-3)
[2020-01-06 19:07] LABS: Bacteria/HPF 1+ HPF (None Seen)
--- NOTE | 2020-01-06 19:42 | ULT ---
Sonogram right upper quadrant HISTORY: Right upper quadrant pain. Fever. FINDINGS: Gallbladder is distended up to 10.4 cm and is filled with non-shadowing echogenic debris. N o gallbladder wall thickening or pericholecystic fluid. Patient was reportedly tender over the gallbladder fossa at the time of the exam. Common duct is upper limits of normal at 0.7 cm. Liver is unremarkable without focal mass or intrahepatic biliary dilatation. No free fluid. IMPRESSION : Gallbladder distention (with extensive biliary sludge) and positive sonographic Agustin sign. Clinical correlation regarding other signs and symptoms of acute cholecystitis is required. Common bile duct upper limits of normal at 0.7 cm.
[2020-01-06 20:55] LABS: INR-International Normal Ratio 1.1; PTT 40.5 SEC (22.9-36.1)
[2020-01-06] MEDS ORDERED: Iothalamate Meglumine 60% 30 ML VIAL FS ONE (21:55)
[2020-01-06] MEDS ORDERED: Ondansetron ODT 4 MG TAB PO PRN (22:00)
[2020-01-06] MEDS ORDERED: Morphine 2 MG/ML SYRINGE SLOW IVP PRN (22:00)
[2020-01-06] MEDS ORDERED: Indomethacin 50 MG SUPP PR SCH (22:00)
[2020-01-06] MEDS ORDERED: Ondansetron PF 4 MG/2 ML Vial IVP PRN (22:00)
[2020-01-06] MEDS ORDERED: Acetaminophen 325 MG TAB PO PRN (22:00)
[2020-01-06] MEDS ORDERED: Sodium Chloride 0.9% 1,000 ML IV SCH (22:00)
[2020-01-06] MEDS ORDERED: Acetaminophen 650 MG Suppository PR PRN (22:00)
--- NOTE | 2020-01-06 22:12 | PDOC.HHP ---
Hospitalist HPI - History of Present Illness epigastric pain History of Present Illness: Case of an 74y/o male with pmhx of htn, ckd, PEs on eliquis, hypercholesterolemia stage 4 renal cancer (on chemo s/p R nephrectomy) and diabetes who comes to hospital due to epigastric pain. patient refers he was on his usual state of heatlh yesterday when he started with severe epigastric pain , descirbed as constant, radiating ot the bakc of 06/08 intensitiy associated with nausea and occasional vomiting. patient states he took some ppis to try and improved his symptoms but they did no improved and continue to get worse for which he decided to seek medical evaluation. patient went to an ED and was dx w pancreatitis, later transfer to this institution where sepsis parameteres were identifed with fever tachycardia and wbc elevation for which sepsis bundles were started, and hospitalist was called for further evaluation and management Hospitalist ROS - Review of Systems All other systems reviewed; all pertinent +/- noted in HPI/Subj Hospitalist History - Past Medical History Cardiac: reports: HTN, Hyperlipidemia Pulmonary: reports: hypertension Heme/Onc: reports: Cancer Endocrine: reports: Diabetes - Family History Family History: reports: cancer, cardiac disorder, cerebrovascular accident, diabetes mellitus - Social History Smoking Status: Never smoker Alcohol: reports: Occassional Drugs: reports: none Living Situation: With Family - Exam General Appearance: awake alert Eye: PERRL, anicteric sclera ENT: normocephalic atraumatic, no oropharyngeal lesions Neck: supple, symmetric, no JVD, no thyromegaly, no lymphadenopathy Heart: no murmur, no gallops, no rubs Heart - other findings: tachycardia Respiratory: CTAB, no wheezes, no rales, no ronchi Gastrointestinal: soft, non-distended, normal bowel sounds, tender to palpation Extremities: no cyanosis, no clubbing, no edema Skin: normal turgor, no lesions Neurological: cranial nerve grossly intact, normal sensation to touch Musculoskeletal: normal tone, normal strength Psychiatric: normal affect, normal behavior, A&O x 3 Hospitalist Results - Labs Result Diagrams: 01/06/20 18:00 01/06/20 18:00 Lab results: WBC 13.9 thou/uL (4.8-10.8) H 01/06/20 18:00 Hgb 12.9 g/dL (14.0-18.0) L 01/06/20 18:00 Hct 40.9 % (42.0-52.0) L 01/06/20 18:00 MCV 98.8 fL (78.0-98.0) H 01/06/20 18:00 Plt Count 302 thou/uL (130-400) 01/06/20 18:00 Neutrophils % 90.7 % (42.0-75.0) H 01/06/20 18:00 Sodium 138 mmol/L (136-145) 01/06/20 18:00 Potassium 5.6 mmol/L (3.5-5.1) H 01/06/20 18:00 Chloride 103 mmol/L (98-107) 01/06/20 18:00 Carbon Dioxide 22 mmol/L (23-31) L 01/06/20 18:00 BUN 32 mg/dL (8.4-25.7) H 01/06/20 18:00 Creatinine 2.23 mg/dL (0.7-1.3) H 01/06/20 18:00 Glucose 171 mg/dL (83-110) H 01/06/20 18:00 Lactic Acid 2.0 mmol/L (0.5-2.2) 01/06/20 20:51 Calcium 9.6 mg/dL (7.8-10.44) 01/06/20 18:00 Total Bilirubin 3.3 mg/dL (0.2-1.2) H 01/06/20 18:00 AST 315 U/L (5-34) H 01/06/20 18:00 ALT 339 U/L (8-55) H 01/06/20 18:00 Alkaline Phosphatase 374 U/L (40-110) H 01/06/20 18:00 Serum Total Protein 7.8 g/dL (5.8-8.1) 01/06/20 18:00 Albumin 4.0 g/dL (3.4-4.8) 01/06/20 18:00 Lipase 254 U/L (8-78) H 01/06/20 18:00 Urine Ketones Negative mg/dL (Negative) 01/06/20 18:50 Urine Blood Negative (Negative) 01/06/20 18:50 Urine Nitrite Negative (Negative) 01/06/20 18:50 Ur Leukocyte Esterase Negative Willa/uL (Negative) 01/06/20 18:50 Urine RBC 0-3 HPF (0-3) 01/06/20 18:50 Urine WBC 0-3 HPF (0-3) 01/06/20 18:50 Ur Squamous Epith Cells 0-3 HPF (0-3) 01/06/20 18:50 Urine Bacteria 1+ HPF (None Seen) A 01/06/20 18:50 - Radiology Interpretation US - abdomen Status: report reviewed by me (acute cholecystitis) Hospitalist H&P A/P - Problem (1) Ascending cholangitis Code(s): K83.09 - OTHER CHOLANGITIS Status: Acute (2) Pancreatitis Code(s): K85.90 - ACUTE PANCREATITIS WITHOUT NECROSIS OR INFECTION, UNSP Status: Acute (3) Metastatic renal cell carcinoma Code(s): C64.9 - MALIGNANT NEOPLASM OF UNSP KIDNEY, EXCEPT RENAL PELVIS Status : Acute (4) Pulmonary embolism Code(s): I26.99 - OTHER PULMONARY EMBOLISM WITHOUT ACUTE COR PULMONALE Status : Acute Qualifiers: Chronicity: acute (5) CKD (chronic kidney disease) stage 3, GFR 30-59 ml/min Status: Chronic (6) Hypertension Code(s): I10 - ESSENTIAL (PRIMARY) HYPERTENSION Status: Chronic Qualifiers: Hypertension type: essential hypertension Qualified Code(s): I10 - Essential (primary) hypertension (7) Morbid obesity with BMI of 40.0-44.9, adult Code(s): E66.01 - MORBID (SEVERE) OBESITY DUE TO EXCESS CALORIES; Z68.41 - BODY MASS INDEX (BMI) 40.0-44.9, ADULT Status: Chronic (8) Hyperkalemia Code(s): E87.5 - HYPERKALEMIA Status: Acute - Plan Plan: - sepsis / ascending cholangitis - pt with elevated liver enzymes and bili with radiologic images of cholecystits, sepsis bundles were started at the ed, will continue with ivfs, cultures were taken, pt started on zosyn. general surgeon and GI were consulted, will be taken to ercp today pancreatitis - likely secondary to gallstone, no duct dilation but labs consistent with obstruction, gi was consulted and will take pt to ercp today. aggresive ivfs were started as well as pain management. pt placed on npo HX of PE - pt on elliquis for pes, last dose 01/06/20 at 9am, will hold for now htn - will hold medications for now in the setting of sepsis renal cancer - continue outpt therapy and f/u hyperkalemia - mild, weill hydrate and f/u in am nausea and vomiting - symptomatic tx prn
[2020-01-06] MEDS ORDERED: Hydrocortisone Sod Succ/PF 100 mg/2 ml Vial ONE (22:16)
[2020-01-06] MEDS ORDERED: Fentanyl 100 MCG/2 ML VIAL ONE (22:16)
[2020-01-06] MEDS ORDERED: SUGAMMADEX SODIUM 500 MG/5 ML VIAL ONE (22:28)
--- NOTE | 2020-01-06 23:32 | RAD ---
ERCP intraoperative fluoroscopy HISTORY: Cholecystitis. FINDINGS: Intraoperative fluoroscopy is provided for ERCP as performed by Dr. Ramos. Spot fluoroscopic images show endoscopic catheter projecting over the right upper quadrant. There is contrast opacification of a common bile duct is upper limits of normal in caliber. No filling defects are apparent. Visualized portions of the intrahepatic biliary system are decompressed. Cystic duct and gallbladder not reliably demonstrated.
[2020-01-06] MEDS ORDERED: Ondansetron HCl/PF 4 MG/2 ML Vial IVP PRN (23:47)
[2020-01-06] MEDS ORDERED: Promethazine HCl 25 MG/ML VIAL SLOW IVP PRN (23:47)
[2020-01-06] MEDS ORDERED: Promethazine HCl 25 MG/ML VIAL IM PRN (23:47)
--- NOTE | 2020-01-07 01:40 | OP ---
DATE OF PROCEDURE: 01/06/2020 PREPROCEDURE DIAGNOSIS: Suspected ascending cholangitis. POSTPROCEDURE DIAGNOSES: 1. Ascending cholangitis, biliary sludge. 2. 7 to 10 mm common bile duct. 3. Nonfilling of the gallbladder. It is unclear, however, some of this maybe the fact the gallbladder is so distended, we could not get any significant filling of contrast to show it. 4. No evidence of malignant strictures or tumors. Normal-appearing ampulla. RECOMMENDATIONS: 1. Continue antibiotics. 2. Consider cholecystectomy tomorrow. ANESTHESIA: General endotracheal anesthesia. Preoperatively, patient received hydrocortisone 5 mg for stress prophylaxis in light of chronic steroid use, Indocin suppositories, 1 L of saline throughout the procedure, and Zosyn prior to the procedure. DESCRIPTION OF PROCEDURE: After the patient was informed of diagnosis, indications for the procedure, risks, benefits, and possible complications of ERCP including perforation, reaction of medication, aspiration, and worsening of pancreatitis, informed consent was obtained. Discussed this with the patient's and son as well. Went to the endoscopy suite, where he was comfortably sedated and intubated and placed in prone position. He has remained stable throughout the procedure with no bouts of hypotension or tachycardia. A side-viewing duodenoscope was advanced through the esophagus, stomach, and the second portion of the duodenum where the ampulla was brought into view. There was no evidence of bile drainage whatsoever, observation for about 5 minutes. Free cannulation was obtained first of the pancreatic duct with guidewire and then the common bile duct with a guidewire and catheter. Cholangiogram revealed a 7 to 10 mm common bile duct with no evidence of obstruction or intrahepatic ductal dilatation. There was coarse sludge-like material of bile coming out with intermittent bouts of small amounts of pus, this is with injection of contrast. The gallbladder did not fill. A sphincterotomy was performed over the guidewire and after this, a large gush of dark bile, thick and sludge-like, came out of the bile duct. A 10 to 12 mm balloon was advanced in the common hepatic duct and occlusion cholangiogram was obtained showing normal intrahepatic ducts. The balloon duct was swept with debris and sludge and small stones and pus coming out of the bile duct, this was done several times until the bile became little bit more clear. There were no overt large filling defects on the cholangiogram. Once the bowel began to clear, we did one final occlusion cholangiogram which revealed no filling defects and no large stones came out. A 12 mm balloon was able to pass the sphincterotomy with no difficulty. There was no bleeding. There was spontaneous drainage of contrast and bile at the termination of procedure. The stomach and bowel were decompressed. The patient was extubated and brought to recovery room in stable condition. Findings were discussed with the patient once he woke up as well as family. We will downgrade to IMU status. He does not need the ICU. We will continue antibiotics, stress dose steroids and consider cholecystectomy tomorrow. Job ID: [id number]
[2020-01-07 03:10] VITALS: BMI 39.9
[2020-01-07] MEDS: Sodium Chloride 0.9% 1,000 ML IV SCH ×3 (03:23→17:16)
[2020-01-07] MEDS: Piperacillin/Tazobactam 3.375 GM in Sodium Chloride 0.9% 100 ML IVPB SCH ×4 (03:23→17:17)
[2020-01-07 04:21] LABS: ALT (SGPT) 261 U/L (8-55); AST (SGOT) 196 U/L (5-34); Albumin 3.1 g/dL (3.4-4.8); Alkaline Phosphatase 284 U/L (40-110); Anion Gap 16 mmol/L (10-20); BUN (Urea Nitrogen) 31 mg/dL (8.4-25.7); Bilirubin, Total 4.7 mg/dL (0.2-1.2); Calc. Creatinine Clearance 51 mL/min (70-130); Calcium 8.3 mg/dL (7.8-10.44); Carbon Dioxide 20 mmol/L (23-31); Chloride 108 mmol/L (98-107); Estimated GFR-MDRD 31; Glucose 195 mg/dL (83-110); Lipase 420 U/L (8-78); Potassium 6.2 mmol/L (3.5-5.1); Protein, Total 6.1 g/dL (5.8-8.1); Sodium 138 mmol/L (136-145)
[2020-01-07 04:36] LABS: Band 21 % (5-11); Hemoglobin 10.8 g/dL (14.0-18.0); Lymphocytes 8 % (21-51); MDiff Complete? YES; Mean Corpuscular HGB CONC 30.2 g/dL (32.0-36.0); Mean Corpuscular Volume 99.6 fL (78.0-98.0); Mean Platelet Volume 7.4 fL (7.4-10.4); Monocytes 4 % (0-10); Neutrophil 67 % (42-75); Platelet Count 257 thou/uL (130-400); RBC Distribution Width 16.6 % (11.5-14.5)
[2020-01-07] MEDS ORDERED: Dextrose 50% Abboject 50 ML SYRINGE IVP PRN (05:23)
[2020-01-07] MEDS ORDERED: Dextrose 5% in Water 1,000 ML IV PRN (05:23)
[2020-01-07] MEDS ORDERED: Insulin Regular 300 UNITS/3 ML VIAL IVP SCH (06:15)
--- NOTE | 2020-01-07 06:56 | CON ---
DATE OF CONSULTATION: 01/06/2020 REASON FOR CONSULT: Possible ascending cholangitis. HISTORY OF PRESENT ILLNESS: Mr. Wilks is pleasant 74-year-old gentleman who began to feel ill about 2 o'clock in the morning on the . He got up and took an H2 gillian and could not go back to sleep. About 9, the pain was getting worse and ended up going to [facility] Emergency Room where he was evaluated and found to have a low-grade temperature. He had a white cell count of 13,000, potassium 5.3, sodium 142, BUN 33, creatinine 2.1, alkaline phosphatase 275, AST of 277, ALT of 333, and bilirubin 2.1. Urinalysis showed protein. Some records also from [facility] where he had a CAT scan of the abdomen and pelvis which showed nonspecific fat stranding around the left ureter, bilateral pulmonary nodules, adrenal masses and left renal mass, which were small compared to his CAT scan in [place] on 10/22/2019. He has known renal cell carcinoma which is metastatic and smaller bilateral effusions. He was transferred to [facility] on arrival here he had a fever up to 102.8. He had a pulse transiently in the 100 range, but then dropped back down to 70s as the temperature came down. His blood pressure was 210/82 on arrival. He has had blood cultures, started on Zosyn. Repeat labs here showed white count 13.3, 90% segs, platelet count 302, hemoglobin 12.9. INR 1.1. BUN of 32 and creatinine of 2.23. Lactic acid 2.4, bilirubin 3.3, AST, ALT increased at 315 and 339, alkaline phosphatase is 374. His lipase is 254. He was given IV fluids as well. General Surgery was called and asked that I be called for possible cholangitis. On my arrival, the patient is with just mild pain in the epigastrium. He has had no fever. He feels much better than he did earlier today he states. He has had a couple bouts like this in the past that he thought was indigestion. He does have a history of metastatic renal cell carcinoma and he recently started a new medication for that about six weeks ago Lenvima. He also started another medication, but that had to be stopped, that was nivolumab, as he was having side effects from that. He felt much better, noting that his breathing has improved since starting that medication. He has also had pulmonary emboli before and he takes Eliquis 2.5 mg a day. He has been on steroids for autoimmune arthritis. It started when he was taking Opdivo. He is no longer on that medication. 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 PAST SURGICAL HISTORY: Left hip arthroplasty, knee replacements, right nephrectomy, left lower lobe resection of lung. MEDICATIONS: At home: 1. Tresiba. 2. Senna 2 daily. 3. Finasteride 5 mg a day. 4. Flomax 0.4 mg at bedtime. 5. Hydralazine 25 mg p.o. t.i.d. 6. Eliquis 2.5 mg a day. 7. Hydrocodone p.r.n. 8. Lenvima 10 mg daily. 9. MiraLAX. 10. Milk of magnesia. 11. Relaxium, Unisom sleeping pills. 12. Reglan once in the morning. 13. Ritalin 20 mg b.i.d. 14. Procardia 60 mg a day. 15. He has been taking prednisone 5 mg a day. ALLERGIES: CIPROFLOXACIN. FAMILY HISTORY: Negative for malignancies. SOCIAL HISTORY: . He is . His is at home. She has had a history of multiple myeloma with a recent stem cell transplant. Does not use tobacco. He does not use alcohol. Never used drugs. REVIEW OF SYSTEMS: Negative for weight loss, rigors or chills. Negative for dark urine. Negative prior pancreatitis. Negative for hemoptysis, melena, hematochezia, or hematemesis. Negative for chest pain. He does have dyspnea on exertion, shortness of breath at times with exertion which he attributes to his weight, sleep apnea. Negative for reflux. Negative for dysphagia. Negative for rashes. Positive for arthralgias as per HPI. PHYSICAL EXAMINATION: VITAL SIGNS: In the emergency room when I saw him he was afebrile after receiving Tylenol, IV fluids and Zosyn. Temperature was 98, pulse 65, blood pressure 168/93. GENERAL: He is resting sitting up in the side of the bed in no distress. He is nonicteric. HEENT: Oropharynx is slightly dry. NECK: Supple. No adenopathy in the neck or supraclavicular areas. LUNGS: Clear. HEART: Regular rate and rhythm, without clicks or murmurs. ABDOMEN: Protuberant, overweight. Mild right upper quadrant tenderness without overt guarding. Epigastric tenderness, a little bit more so, voluntary guarding but no rebound. There is no fluid wave or shifting dullness. No peritoneal signs. No CVA tenderness. EXTREMITIES: No clubbing, cyanosis, or edema. SKIN: Good color, warm and dry. EXTREMITIES: Pulses palpable. LABORATORY DATA: As per HPI. Ultrasound at [facility] showed gallbladder distention 10 cm with extensive biliary sludge, positive Agustin sign, 7 mm common bile duct. ASSESSMENT: 1. This is a gentleman who is 74 years old. He has had a couple bouts of epigastric pain attributed to reflux in the past. It got better with H2 gillian, who this morning had severe epigastric pain that H2 gillian would not help. Ultimately he went to [facility], was in urgent care and then at [facility] and then sent to [facility] for possible biliary disease and fever. Here, had symptoms of right upper quadrant pain, fever, elevated bilirubin, probable gallstones or sludge and findings consistent with cholecystitis or possibly even cholangitis with fever up to 102. In light of his chronic steroid use and multiple comorbidities, he is at a high risk for decompensation if he in fact has cholangitis and I have recommended he undergo endoscopic retrograde cholangiopancreatography this evening. Risks, benefits and possible complications of the procedure were discussed with the patient. Indications, the options for empiric antibiotic therapy alone were all discussed with him and family. Ultimately they agreed to proceed with endoscopic retrograde cholangiopancreatography this evening. 2. Likely heavy amounts of biliary sludge and stones with a dilated gallbladder consistent with biliary disease. 3. History of renal cell carcinoma, metastatic. There is always possibility that he has a metastatic obstruction of biliary tree. However, with his improvement of his CAT scan versus a CAT scan from September of this year, just with a change in chemotherapy 6 weeks ago, it seems that would be less likely. 4. History of pulmonary embolism, on chronic anticoagulation, low dose. No signs of bleeding right now with stable coagulopathy, normal platelets. PLAN: 1. Proceed with the endoscopic retrograde cholangiopancreatography tonight. agree with antibiotics given, so far, cultures and resuscitation. 2. With regard to his pancreatitis this seems to be low grade. Hopefully his fluids will manage that. We will recheck his labs in the morning. He does understand there is some risk of exacerbating the pancreatitis with the endoscopic retrograde cholangiopancreatography, as does his family. Job ID: [id number]
[2020-01-07] MEDS: Insulin Regular 300 UNITS/3 ML VIAL SC PRN ×3 (07:25→22:26)
[2020-01-07] MEDS: predniSONE 5 MG TAB PO SCH (08:25)
[2020-01-07] MEDS: Finasteride 5 MG TAB PO SCH (08:26)
[2020-01-07] MEDS: Pantoprazole 40 MG VIAL IVP SCH (08:26)
--- NOTE | 2020-01-07 10:56 | CON ---
DATE OF CONSULTATION: 01/07/2020 REASON FOR CONSULTATION: placement for ascending cholangitis. HISTORY OF PRESENT ILLNESS: The patient is a 74-year-old male who sees Dr. Rodas in the office. He has a history of metastatic renal cell carcinoma. He came in with abdominal pain yesterday. He was found to have ascending cholangitis. He underwent ERCP with removal of sludge. He is doing much better today. He is scheduled for a cholecystectomy tomorrow by Dr. Carmona. At the current time he has no abdominal pain and is not short of breath. PAST MEDICAL HISTORY: 1. Metastatic renal cell carcinoma to the lung. 2. Hypertension. 3. Diabetes mellitus. 4. Autoimmune arthropathy. 5. Chronic kidney disease stage 3. 6. LOUIS, on CPAP. PAST SURGICAL HISTORY: 1. Left hip arthroplasty. 2. Knee surgery with replacement. 3. Right nephrectomy. 4. Left lower lobe resection. MEDICATIONS: Prior to admission reviewed - see outpatient medication section of chart. Inpatient medications: Currently on Zosyn for antibiotic coverage. ALLERGIES: CIPRO. SOCIAL HISTORY: He is . Does not use tobacco. Does not drink alcohol. Never used illicit drugs. REVIEW OF SYSTEMS: Twelve-point review of systems is otherwise negative. PHYSICAL EXAMINATION: VITAL SIGNS: Temperature 98.6, pulse 53, blood pressure 158/66, O2 saturation 95%. HEENT: Unremarkable. NECK: No adenopathy or JVD. LUNGS: Clear anteriorly. CARDIOVASCULAR: Regular without murmur. ABDOMEN: Mildly tender to deep palpation. No rebound. EXTREMITIES: No clubbing, cyanosis, or edema. LABORATORY DATA: Sodium 138, potassium 6.2, chloride 108, CO2 of 20, BUN 31, creatinine 2.1, glucose 195, AST 196, ALT 261, total bilirubin 4.7, lipase 420. ASSESSMENT: 1. Ascending cholangitis from retained biliary sludge. 2. Pancreatitis. 3. Hyperkalemia. 4. History of obstructive sleep apnea. 5. History of metastatic renal cell carcinoma. 6. Chronic renal insufficiency with previous nephrectomy. PLAN: 1. The patient was given insulin and D50 for his hyperkalemia. He was also given Kayexalate. He needs to have a potassium level repeated this afternoon. 2. Watch him on telemetry until his potassium level normalizes. 3. Would withhold nonsteroidal anti-inflammatory medication and any medication that may cause him to be hyperkalemic. I did not see anything that looked concerning on a quick review of his outpatient medications and I definitely inpatient medications that could cause hyperkalemia. I will notify Dr. Rodas of the patient's admission. Job ID: [id number]
--- NOTE | 2020-01-07 12:35 | PRG ---
DATE OF SERVICE: 01/07/2020 SUBJECTIVE: Mr. Wilks is resting comfortably in bed. His potassium was high this morning. He has been given some Kayexalate. He denies any pain at all. He denies any nausea or vomiting. He has had no bowel movement since admission. OBJECTIVE: VITAL SIGNS: Temperature max 102.8 yesterday, T-max today 98.6, pulse 57, blood pressure 150/66, respirations 18, O2 saturation 95%. GENERAL: He is well nourished, well developed. He is a bit overweight. He has no distress. LUNGS: Clear. HEART: Regular rate and rhythm without clicks , rubs or murmurs. ABDOMEN: Soft, nontender. EXTREMITIES: No edema. LABORATORY DATA: Sodium 138, potassium 6.2, chloride 108, bicarb 16, BUN and creatinine 31 and 2.11, down from 32 and 2.23 yesterday. Glucose 252. Bilirubin 4.7, up from 3.5. AST and ALT down to 196 and 261 from 315 and 390. Alkaline phosphatase 284, down from 374. Lipase 428, up from 254. Microbiology cultures pending. ASSESSMENT: 1. Ascending cholangitis, improved markedly. 2. Mild increase in bilirubin and the dropping of other enzymes. This is likely related to injection at time of ERCP last night. 3. Mild pancreatitis, no symptoms, likely biliary obstruction, mild. 4. Metastatic renal cell carcinoma with previous right nephrectomy and left lower lobe resection with some evidence on recent CAT scan from outside facility yesterday of diminishing pulmonary and adrenal metastasis size. 5. Chronic steroid use, back on his oral prednisone 5 mg a day. No signs of adrenal insufficiency. He did receive stress dose steroids for ERCP last night for future surgeries. 6. Hyperkalemia, addressed by hospitalist. 7. Acute renal failure, addressed by hospitalist. 8. History of PE in the past. RECOMMENDATIONS: 1. Dose antibiotics for renal failure. 2. Hold Lovenox in light of renal failure if he is going to have surgery tomorrow. He could be restarted on blood thinners after that. If he is not going to have surgery tomorrow, heparin bridge would probably be necessary instead of [id number] heparin in light of his renal function. I have talked with Dr. Peterson. She feels he is low risk at this point in time, and we can use SCDs. 3. We will start clear liquids. 4. We will recheck labs tomorrow. We will continue aggressive fluid resuscitation in light of renal insufficiency and the elevated BUN and creatinine. Job ID: [id number]
[2020-01-07 15:36] LABS: Potassium 4.9 mmol/L (3.5-5.1)
--- NOTE | 2020-01-07 18:29 | PDOC.HOSPP ---
- Subjective Encounter Date: 01/07/20 Encounter Time: 18:30 Subjective: f/u for ascending cholangitis tx with Zosyn/Morphine/IVF's. ERCP performed without stricture noted. - Objective Vital Signs & Weight: Vital Signs (12 hours) Temp Pulse Ox 01/07/20 15:35 97.3 F L 01/07/20 12:00 94 L 01/07/20 07:31 95 01/07/20 07:00 98.6 F Weight Weight 262 lb 5.601 oz Most Recent Monitor Data Heart Rate from ECG 47 NIBP 156/91 NIBP BP-Mean 112 Respiration from ECG 22 SpO2 100 I&O: 01/06/20 01/07/20 01/08/20 06:59 06:59 06:59 Intake Total 671 1870 Output Total 200 750 Balance 471 1120 Result Diagrams: 01/07/20 03:35 01/07/20 15:20 Additional Labs: Accuchecks 01/07/20 01/07/20 01/07/20 16:59 12:01 07:17 POC Glucose 175 H 130 H 252 H Microbiology 01/06/20 18:00 Venous blood - Right Hand Blood Culture - Preliminary Specimen has been received and culture in progress. No Growth to date. 01/06/20 18:00 Venous blood - Left Arm Blood Culture - Preliminary Specimen has been received and culture in progress. No Growth to date. Laboratory Tests 06/25/19 06/25/19 06/26/19 06:56 06:56 06:19 WBC Hgb 13.0 L Neutrophils % 75.9 H Neutrophils % (Manual) 49 Band Neuts % (Manual) Potassium BUN Creatinine 1.78 H Lactic Acid Total Bilirubin AST ALT Lipase 01/06/20 01/06/20 01/06/20 18:00 18:00 20:51 WBC 13.9 H Hgb Neutrophils % 90.7 H Neutrophils % (Manual) Band Neuts % (Manual) Potassium BUN 32 H Creatinine 2.23 H Lactic Acid 2.0 Total Bilirubin 3.3 H AST 315 H ALT 339 H Lipase 254 H 01/07/20 01/07/20 03:35 03:35 WBC Hgb Neutrophils % Neutrophils % (Manual) 67 Band Neuts % (Manual) 21 H Potassium 6.2 H BUN Creatinine Lactic Acid Total Bilirubin 4.7 H AST 196 H ALT 261 H Lipase 420 H EKG Reviewed by me: Yes (Tele - A-fib in 70's) Hospitalist ROS - Medication Medications: Active Medications Generic Name Dose Route Start Last Admin Trade Name Freq PRN Reason Stop Dose Admin Dextrose/Water 25 gm 01/07/20 05:23 01/07/20 06:29 Dextrose 50% IVP 25 gm PRN PRN Administration HYPOGLYCEMIA PROTOCOL Finasteride 5 mg 01/07/20 09:00 01/07/20 08:26 Proscar PO 5 mg DAILY ARRON Administration Piperacillin Sod/Tazobactam 100 mls @ 200 mls/hr 01/06/20 23:59 01/07/20 17: 17 Sod 3.375 gm/ Sodium Chloride IVPB 100 mls Q6HR ARRON Administration Sodium Chloride 1,000 mls @ 120 mls/hr 01/06/20 22:13 01/07/20 17:16 Normal Saline 0.9% IV 1,000 mls .Q8H20M ARRON Administration Insulin Human Regular 0 units 01/07/20 05:23 01/07/20 17:17 Humulin R SC 2 units .MODERATE SLIDING SC PRN Administration MODERATE SLIDING SCALE Protocol Pantoprazole Sodium 40 mg 01/07/20 09:00 01/07/20 08:26 Protonix IVP 40 mg DAILY ARRON Administration Prednisone 5 mg 01/07/20 08:00 01/07/20 08:25 Prednisone PO 5 mg QAM-WM ARRON Administration - Exam General Appearance: NAD, awake alert Eye: PERRL, anicteric sclera ENT: normocephalic atraumatic, no oropharyngeal lesions Neck: supple, symmetric, no JVD, no thyromegaly Heart: no gallops, no rubs, normal peripheral pulses, irregular Heart - other findings: S1, S2 Respiratory: CTAB, no wheezes, no rales, no ronchi, normal chest expansion Gastrointestinal: soft, non-distended, normal bowel sounds, no palpable masses Gastrointestinal - other findings: mild TTP in RUQ Extremities: no cyanosis, 1+ LE edema Skin: normal turgor, no lesions Neurological: cranial nerve grossly intact, no new deficit Musculoskeletal: normal tone, normal strength, no muscle wasting Psychiatric: normal affect, A&O x 3 Hosp A/P (1) Ascending cholangitis Code(s): K83.09 - OTHER CHOLANGITIS Status: Acute Plan: Continue Zosyn, clear liquids, likely cholecystectomy in 24h, pain control, IVF' s (2) Pancreatitis Code(s): K85.90 - ACUTE PANCREATITIS WITHOUT NECROSIS OR INFECTION, UNSP Status: Acute Plan: See mgmt in #1, serial lipase (3) Hyperkalemia Code(s): E87.5 - HYPERKALEMIA Status: Acute Plan: Improved, continue IVF's, serial K+ monitoring (4) Metastatic renal cell carcinoma Code(s): C64.9 - MALIGNANT NEOPLASM OF UNSP KIDNEY, EXCEPT RENAL PELVIS Status : Acute Plan: Chemotherapy per medical oncology as outpt (5) CKD (chronic kidney disease) stage 3, GFR 30-59 ml/min Status: Chronic Plan: Avoid nephrotoxic meds and limit contrast exposure - Plan continue antibiotics, out of bed/ambulate, DVT proph w/SCDs Stable currently Continue IVF's Pain control as clinically indicated Continue Prednisone Likely cholecystectomy in 24h AM lab: CMP, CBC, Lipase
--- NOTE | 2020-01-07 19:22 | CON ---
DATE OF CONSULTATION: 01/07/2020 HISTORY OF PRESENT ILLNESS: Mr. Wilks is a 74-year-old male with known metastatic renal cell carcinoma with metastases to the lung, who is currently on Lenvima oral treatment. He is tolerating this fairly well, although he noticed on the day of admission that he had acute onset abdominal pain and mid epigastric pain. It was much worse with deep breaths. On presentation to the [facility] Out[facility] Emergency Room, he had an elevation in his amylase and lipase as well as his bilirubin and there was concern for ascending cholangitis and pancreatitis. He was transferred to the [facility] Emergency Room and was seen by Gastroenterology. ERCP was done, which showed gallbladder sludge as well as some small gallstones, no acute obstruction of the bile duct was seen. He has been seen by Surgery, and there is plan for cholecystectomy. He remains afebrile here in the hospital, although he had fever as an outpatient in an outlying ER up to 102. He states his pain is much better since the ERCP. He still has it with deep breaths, but he is sitting up in the chair and is feeling much better overall. PAST MEDICAL HISTORY: 1. Metastatic renal cell carcinoma. 2. History of pulmonary embolism, on chronic anticoagulation. 3. Obesity, exacerbated by steroids. 4. 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 5. Diabetes mellitus. 6. Chronic renal insufficiency, status post right nephrectomy or renal cell carcinoma. 7. Obstructive sleep apnea. CURRENT MEDICATIONS: 1. Tylenol p.r.n. 2. Proscar 5 mg p.o. daily. 3. Insulin regular sliding scale. 4. Morphine 2 mg IV q.4 hours p.r.n. 5. Zofran 4 mg IV or p.o. q.6 hours p.r.n. 6. Protonix 40 mg IV daily. 7. Zosyn 3.375 g IV q.6 hours. 8. Prednisone 5 mg p.o. daily. 9. Tamsulosin 0.4 mg p.o. at bedtime. ALLERGIES: CIPROFLOXACIN. SOCIAL HISTORY: He lives in town with his and children, who are very supportive. He denies tobacco or alcohol use. FAMILY HISTORY: Noncontributory. REVIEW OF SYSTEMS: Otherwise 10-point review of systems is negative. See the history of present illness. PHYSICAL EXAMINATION: VITAL SIGNS: Pulse in the 50s, respiratory rate 19 to 24, and O2 saturation 95% on room air. He is afebrile. GENERAL: He is alert, awake, and oriented x3, is sitting in a chair, in no acute distress. HEENT: Extraocular muscles are intact. Sclerae are slightly icteric. NECK: Supple without lymphadenopathy. CARDIOVASCULAR: Regular rhythm, slightly bradycardic. ABDOMEN: Obese. Hypoactive bowel sounds. Soft. Nontender currently. EXTREMITIES: No edema. LABORATORY DATA: White blood cell count 14.0, hemoglobin 10.8, and platelets 257. INR 1.1. Sodium 138; potassium 6.2; chloride 108; CO2 of 20; BUN 31; creatinine 2.1, which is close to his baseline; and glucose 195. Total bilirubin up to 4.7, AST 196, ALT 261, total protein 6.1, albumin 3.1, and lipase 420. IMAGING DATA: Abdominal ultrasound done here shows gallbladder distention with extensive sludge and a sonographic Agustin sign. The common bile duct is 0.7 cm. ASSESSMENT: Mr. Wilks is a 74-year-old male with, 1. Hyperbilirubinemia, likely secondary to gallbladder sludge and ascending cholangitis. 2. History of metastatic renal cell carcinoma, currently controlled on Lenvima. 3. History of pulmonary embolism, on chronic Eliquis. 4. Adrenal insufficiency secondary to longstanding prednisone use. 5. 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 PLAN: 1. He has already been seen by Dr. Carmona and they are planning on surgery tomorrow. I would agree with this, but obviously he is a surgical risk and this has been discussed with the surgeon. I did discuss this with the patient as well. 2. He is not on Eliquis currently, but I would recommend if he does not go to the operating room tomorrow that we restart the anticoagulation, otherwise I think it is reasonable to hold this for the day prior to surgery. 3. He is on IV antibiotics, which I think we should continue. 4. We will follow peripherally. Job ID: [id number]
[2020-01-07] MEDS ORDERED: Tamsulosin HCl 0.4 MG CAP PO SCH (21:00)
[2020-01-08] MEDS: Piperacillin/Tazobactam 3.375 GM in Sodium Chloride 0.9% 100 ML IVPB SCH ×5 (00:08→23:17)
[2020-01-08] MEDS: Sodium Chloride 0.9% 1,000 ML IV SCH (03:51)
[2020-01-08 04:08] LABS: #Eosinphils 0.1 thou/uL (0.0-0.7); #Monocytes 0.5 thou/uL (0.11-0.59); #Neutrophils 7.1 thou/uL (1.40-6.50); %Basophils 0.2 % (0.0-1.0); %Eosinophils 1.6 % (0.0-10.0); %Lymphocytes 11.3 % (21.0-51.0); %Monocytes 5.7 % (0.0-10.0); %Neutrophils 81.1 % (42.0-75.0); Hemoglobin 10.2 g/dL (14.0-18.0); Mean Corpuscular HGB CONC 31.1 g/dL (32.0-36.0); Mean Corpuscular Hemoglobin 31.2 pg (27.0-31.0); Mean Platelet Volume 7.2 fL (7.4-10.4); Platelet Count 244 thou/uL (130-400); RBC Distribution Width 16.5 % (11.5-14.5); Red Blood Cell (RBC) Count 3.26 mill/uL (4.70-6.10); White Blood Cell (WBC) Count 8.7 thou/uL (4.8-10.8)
[2020-01-08 04:24] LABS: ALT (SGPT) 224 U/L (8-55); AST (SGOT) 153 U/L (5-34); Albumin 2.7 g/dL (3.4-4.8); Alkaline Phosphatase 210 U/L (40-110); Anion Gap 13 mmol/L (10-20); BUN (Urea Nitrogen) 27 mg/dL (8.4-25.7); Bilirubin, Total 3.7 mg/dL (0.2-1.2); Calc. Creatinine Clearance 51 mL/min (70-130); Calcium 8.3 mg/dL (7.8-10.44); Carbon Dioxide 20 mmol/L (23-31); Chloride 111 mmol/L (98-107); Estimated GFR-MDRD 31; Globulin 2.8 g/dL (2.4-3.5); Glucose 98 mg/dL (83-110); Lipase 132 U/L (8-78); Potassium 3.7 mmol/L (3.5-5.1); Protein, Total 5.5 g/dL (5.8-8.1); Sodium 140 mmol/L (136-145)
[2020-01-08] MEDS: Finasteride 5 MG TAB PO SCH (08:31)
[2020-01-08] MEDS: predniSONE 5 MG TAB PO SCH (08:31)
[2020-01-08] MEDS: Pantoprazole 40 MG VIAL IVP SCH (08:32)
[2020-01-08] MEDS ORDERED: Sodium Chloride 0.9% 1,000 ML IV SCH (09:00)
[2020-01-08] MEDS: Apixaban 5 MG TAB PO SCH ×2 (09:46→21:12)
--- NOTE | 2020-01-08 09:46 | PRG ---
DATE OF SERVICE: 01/08/2020 SUBJECTIVE: I had a long discussion with Mr. Wilks today. He is not complaining of any pain. He tolerated the clear liquids without difficulty. OBJECTIVE: VITAL SIGNS: He is afebrile and his vital signs are stable. ABDOMEN: Soft. He is minimally tender in the right upper abdomen without guarding or rebound. LABORATORY DATA: His liver tests are improved, although bilirubin is still 3.7. Creatinine has improved. Potassium is normal. ASSESSMENT: Ascending cholangitis without stones, status post endoscopic retrograde cholangiopancreatography and sphincterotomy. PLAN: I had a long discussion with Dr. Peterson this morning. Given Mr. Wilks's underlying tissues and cancer specifically and the fact that he had a previous open right nephrectomy, he would be high risk for this procedure. I think the safer move is to attempt to advance diet, put him back on his Eliquis and see how he does. Because of sphincterotomy, he should not be faced with any emergent recurrent cholangitis. We will follow with you. Job ID: [id number]
[2020-01-08] MEDS: Insulin Regular 300 UNITS/3 ML VIAL SC PRN (11:27)
--- NOTE | 2020-01-08 12:30 | PRG ---
DATE OF SERVICE: 01/08/2020 SUBJECTIVE: Mr. Wilks is feeling well. Talked with Dr. Carmona this morning. He is going to hold off on surgery right now in light of his metastatic disease and concerning for high risk of a needing to convert to open surgery with regard to his previous extensive abdominal surgery for renal cancer. Mr. Wilks wants to go home. He is feeling better. He does ask about his oncology medicine, if he needs to start taking those again. He was started back on his Eliquis today. Tolerating full liquids. OBJECTIVE: VITAL SIGNS: Temperature is 96.8. He has been afebrile, pulse 83, and blood pressure 155/99. LUNGS: Clear. ABDOMEN: Soft, nontender. EXTREMITIES: No clubbing, cyanosis, or edema. He is sitting up in bed. LABORATORY DATA: White count 8.7, down from 14, hemoglobin 10.2, platelet count 244, and neutrophils down to 81%. Sodium 140, potassium 3.7, BUN and creatinine 27 and 2.12, coming back to normal. Bilirubin is 3.7, down from 4.7. AST and ALT are 153, 224, and alkaline phosphatase 210. These are all down. Lipase is 132. ASSESSMENT: 1. Ascending cholangitis, improving. Blood cultures negative to date. 2. Distended gallbladder with thick sludge and debris per ultrasound on admission. There is some reluctance to take out his gallbladder with regard to his comorbidities, chronic steroid use, malignancy. there is going to be a trial to see if he can eat and do well without cholecystectomy, if he felt that he will need a cholecystectomy. RECOMMENDATIONS: 1. Continue antibiotics. 2. Continue home medications. I agree with restarting Eliquis. If he is going to go home in a day or two, he can restart his chemotherapy pill there. If he is going to stay longer, his will need to bring that up. I have asked his oncologist about that. 3. We will go ahead and start him on some ursodiol, it may help with the bile flow and help, although there is no strong data to indicate positive and negative fact that may help to prevent him needing a gallbladder surgery. We will follow along with you. Job ID: [id number]
[2020-01-08] MEDS ORDERED: hydrALAZINE 20 MG/ML VIAL SLOW IVP PRN (13:57)
[2020-01-08] MEDS ORDERED: Doxylamine 25 MG TAB PO PRN (14:31)
[2020-01-08] MEDS ORDERED: Polyethylene Glycol 3350 17 GM Packet PO PRN (14:31)
--- NOTE | 2020-01-08 14:37 | PDOC.HOSPP ---
- Subjective Encounter Date: 01/08/20 Encounter Time: 14:30 Subjective: f/u for ascending cholangitis with initial plans for cholecystectomy now with recommendations for conservative mgmt and IV abx. Feels ok overall. BP labile per nursing. - Objective Vital Signs & Weight: Vital Signs (12 hours) Temp Pulse Resp BP Pulse Ox 01/08/20 13:34 195/95 H 01/08/20 12:30 98.0 F 53 L 18 182/75 H 95 01/08/20 11:13 96.8 F L 01/08/20 08:00 94 L 01/08/20 07:17 97.1 F L 01/08/20 03:30 97.5 F L Weight Weight 271 lb 8 oz Most Recent Monitor Data Heart Rate from ECG 61 NIBP 155/99 NIBP BP-Mean 117 Respiration from ECG 29 SpO2 98 I&O: 01/07/20 01/08/20 01/09/20 06:59 06:59 06:59 Intake Total 671 3230 Output Total 200 1450 250 Balance 471 1780 -250 Result Diagrams: 01/08/20 03:26 01/08/20 03:26 Additional Labs: Accuchecks 01/08/20 01/08/20 01/07/20 10:55 05:37 20:07 POC Glucose 211 H 98 219 H 01/07/20 16:59 POC Glucose 175 H Microbiology 01/06/20 18:00 Venous blood - Right Hand Blood Culture - Preliminary Specimen has been received and culture in progress. No Growth to date. 01/06/20 18:00 Venous blood - Right Hand Blood Culture - Preliminary NO GROWTH AT 48 HOURS 01/06/20 18:00 Venous blood - Left Arm Blood Culture - Preliminary Specimen has been received and culture in progress. No Growth to date. 01/06/20 18:00 Venous blood - Left Arm Blood Culture - Preliminary NO GROWTH AT 48 HOURS Laboratory Tests 01/21/16 01/21/16 01/28/16 12:25 12:25 12:16 WBC 6.0 Hgb 17.5 Hct 52.3 H MCV 95.4 H Plt Count 196 Neutrophils % Neutrophils % (Manual) Band Neuts % (Manual) Sodium 137 Potassium 4.3 Chloride 102 Carbon Dioxide 26 Anion Gap 13 BUN 21 Creatinine 1.44 H Estimated GFR (MDRD) 48 Glucose 115 H POC Glucose 202 H Calcium 9.4 Lactic Acid Total Bilirubin AST ALT Alkaline Phosphatase Lipase 06/25/19 06/25/19 06/26/19 06:56 06:56 06:19 WBC Hgb 13.0 L Hct MCV Plt Count Neutrophils % 75.9 H Neutrophils % (Manual) 49 Band Neuts % (Manual) Sodium Potassium Chloride Carbon Dioxide Anion Gap BUN Creatinine 1.78 H Estimated GFR (MDRD) Glucose POC Glucose Calcium Lactic Acid Total Bilirubin AST ALT Alkaline Phosphatase Lipase 01/06/20 01/06/20 01/06/20 18:00 18:00 20:51 WBC 13.9 H Hgb Hct MCV Plt Count Neutrophils % 90.7 H Neutrophils % (Manual) Band Neuts % (Manual) Sodium Potassium Chloride Carbon Dioxide Anion Gap BUN 32 H Creatinine 2.23 H Estimated GFR (MDRD) Glucose POC Glucose Calcium Lactic Acid 2.0 Total Bilirubin 3.3 H AST 315 H ALT 339 H Alkaline Phosphatase Lipase 254 H 01/07/20 01/07/20 01/08/20 03:35 03:35 03:26 WBC Hgb Hct MCV Plt Count Neutrophils % Neutrophils % (Manual) 67 Band Neuts % (Manual) 21 H Sodium Potassium 6.2 H Chloride Carbon Dioxide Anion Gap BUN Creatinine Estimated GFR (MDRD) Glucose POC Glucose Calcium Lactic Acid Total Bilirubin 4.7 H 3.7 H AST 196 H 153 H ALT 261 H 224 H Alkaline Phosphatase 210 H Lipase 420 H 132 H EKG Reviewed by me: Yes (Tele - A-fib in 60's) Hospitalist ROS - Medication Medications: Active Medications Generic Name Dose Route Start Last Admin Trade Name Freq PRN Reason Stop Dose Admin Apixaban 2.5 mg 01/08/20 09:00 01/08/20 09:46 Eliquis PO 2.5 mg BID ARRON Administration Dextrose/Water 25 gm 01/07/20 05:23 01/07/20 06:29 Dextrose 50% IVP 25 gm PRN PRN Administration HYPOGLYCEMIA PROTOCOL Finasteride 5 mg 01/07/20 09:00 01/08/20 08:31 Proscar PO 5 mg DAILY ARRON Administration Hydralazine HCl 10 mg 01/08/20 13:57 01/08/20 14:02 Apresoline SLOW IVP 10 mg Q4H PRN Administration SBP > 180 Piperacillin Sod/Tazobactam 100 mls @ 200 mls/hr 01/06/20 23:59 01/08/20 11: 27 Sod 3.375 gm/ Sodium Chloride IVPB 100 mls Q6HR ARRON Administration Insulin Human Regular 0 units 01/07/20 05:23 01/08/20 11:27 Humulin R SC 4 units .MODERATE SLIDING SC PRN Administration MODERATE SLIDING SCALE Protocol Prednisone 5 mg 01/07/20 08:00 01/08/20 08:31 Prednisone PO 5 mg QAM-WM ARRON Administration Tamsulosin HCl 0.4 mg 01/07/20 21:00 01/07/20 22:23 Flomax PO 0.4 mg HS ARRON Administration - Exam General Appearance: NAD, awake alert Eye: PERRL, anicteric sclera ENT: normocephalic atraumatic, no oropharyngeal lesions Neck: supple, symmetric, no JVD, no thyromegaly Heart: no murmur, no gallops, no rubs, normal peripheral pulses, irregular Heart - other findings: S1, S2 Respiratory: CTAB, no wheezes, no rales, no ronchi, normal chest expansion Extremities: no cyanosis, no clubbing, no edema Skin: normal turgor, no lesions Neurological: cranial nerve grossly intact, no new deficit Musculoskeletal: normal tone, normal strength, no muscle wasting Psychiatric: normal affect, A&O x 3 Hosp A/P (1) Ascending cholangitis Code(s): K83.09 - OTHER CHOLANGITIS Status: Acute Plan: Continue Zosyn IV, conservative mgmt recommended per surgery, serial LFT's (2) Pancreatitis Code(s): K85.90 - ACUTE PANCREATITIS WITHOUT NECROSIS OR INFECTION, UNSP Status: Acute Plan: Improving, see #1 above, serial Lipase (3) Hyperkalemia Code(s): E87.5 - HYPERKALEMIA Status: Acute Plan: Resolving, continue serial K+ monitoring (4) Metastatic renal cell carcinoma Code(s): C64.9 - MALIGNANT NEOPLASM OF UNSP KIDNEY, EXCEPT RENAL PELVIS Status : Chronic Plan: Will resume outpt chemotherapy after d/c (5) CKD (chronic kidney disease) stage 3, GFR 30-59 ml/min Status: Chronic - Plan continue antibiotics, out of bed/ambulate, DVT proph w/SCDs Stable currently Saline lock IVF's Pain control as clinically indicated Continue Prednisone OOB/ambulate Resume home BP regimen AM lab: CMP, H/H, Lipase Likely home in 24h
[2020-01-08] MEDS: hydrALAZINE 25 MG TAB PO SCH ×2 (15:40→21:12)
[2020-01-08] MEDS: HYDROcodone/Acetaminophen 10/325 mg Tablet PO SCH ×2 (15:40→21:13)
--- NOTE | 2020-01-08 16:31 | PRG ---
DATE OF SERVICE: 01/08/2020 SUBJECTIVE: Nikolas Wilks has no complaints. He said he felt better, and his pain resolved as soon as he had his procedure by Dr. Ramos. OBJECTIVE: VITAL SIGNS: He is afebrile. Heart rates in the 50s, respiratory rates in the 20s, oximetry is 97% on room air, and blood pressure 187/77. LUNGS: Clear. HEART: Regular rhythm. ABDOMEN: Soft. He has been walking around, says he actually feels well. IMPRESSION: 1. Cholangitis, improving. 2. Metastatic renal cell carcinoma with an excellent response to his most recent therapy. His dyspnea on exertion improved dramatically with the initiation of this drug (Lenvima). 3. History of pulmonary embolism in the past, anticoagulated. 4. Arthralgias, felt to be secondary to his immunotherapy in the past. 5. History of nephrectomy. 6. History of sleep apnea. PLAN: Continue supportive care. He appears to be clinically stable. He actually looks quite well, weekend. Job ID: [id number]
[2020-01-08] MEDS: Ursodiol 300 MG CAP PO SCH (17:10)
[2020-01-08] MEDS ORDERED: Finasteride 5 MG TAB PO SCH (21:00)
[2020-01-08] MEDS ORDERED: Senokot 8.6 MG TAB PO SCH (21:00)
[2020-01-08] MEDS: Tamsulosin HCl 0.4 MG CAP PO SCH (21:14)
[2020-01-09 04:40] LABS: Platelet Count 231 thou/uL (130-400)
[2020-01-09 05:00] LABS: ALT (SGPT) 162 U/L (8-55); AST (SGOT) 73 U/L (5-34); Albumin 2.7 g/dL (3.4-4.8); Alkaline Phosphatase 197 U/L (40-110); Anion Gap 12 mmol/L (10-20); BUN (Urea Nitrogen) 19 mg/dL (8.4-25.7); Bilirubin, Total 1.9 mg/dL (0.2-1.2); Calc. Creatinine Clearance 57 mL/min (70-130); Calcium 8.6 mg/dL (7.8-10.44); Carbon Dioxide 22 mmol/L (23-31); Chloride 111 mmol/L (98-107); Estimated GFR-MDRD 33; Globulin 2.8 g/dL (2.4-3.5); Glucose 120 mg/dL (83-110); Lipase 105 U/L (8-78); Potassium 3.7 mmol/L (3.5-5.1); Protein, Total 5.5 g/dL (5.8-8.1); Sodium 141 mmol/L (136-145)
[2020-01-09] MEDS: Piperacillin/Tazobactam 3.375 GM in Sodium Chloride 0.9% 100 ML IVPB SCH ×2 (05:38→11:52)
[2020-01-09] MEDS ORDERED: predniSONE 20 MG TAB PO SCH (08:00)
[2020-01-09] MEDS ORDERED: Metoclopramide HCl 10 MG TAB PO SCH (09:00)
[2020-01-09] MEDS ORDERED: Multivitamin W/ Minerals 1 TAB PO SCH (09:00)
[2020-01-09] MEDS ORDERED: NIFEdipine XL 60 MG TAB PO SCH (09:00)
[2020-01-09] MEDS: Tamsulosin HCl 0.4 MG CAP PO SCH (09:24)
[2020-01-09] MEDS: hydrALAZINE 25 MG TAB PO SCH (09:24)
[2020-01-09] MEDS: HYDROcodone/Acetaminophen 10/325 mg Tablet PO SCH (09:24)
[2020-01-09] MEDS: Apixaban 5 MG TAB PO SCH (09:25)
[2020-01-09] MEDS: Ursodiol 300 MG CAP PO SCH (09:27)
[2020-01-09 11:50] VITALS: BP 165/70; TEMP 98
[2020-01-09] MEDS: Insulin Regular 300 UNITS/3 ML VIAL SC PRN (11:58)
--- NOTE | 2020-01-09 13:17 | DIS ---
DATE OF ADMISSION: 01/06/2020 DATE OF DISCHARGE: 01/09/2020 DISCHARGE DIAGNOSES: 1. Ascending cholangitis. 2. Acute pancreatitis, resolving. 3. Hyperkalemia, resolved. 4. Metastatic renal cell carcinoma to the lungs with current chemotherapy. 5. Acute kidney injury on chronic kidney disease, improved. 6. Chronic macrocytic anemia, secondary to chemotherapy. 7. Chronic anticoagulation with Eliquis. CONSULTATIONS: 1. Dr. Ramos with GI Service. 2. Dr. Peterson with Medical Oncology Service. 3. Dr. Carmona with General Surgery Service. 4. Dr. Galindo and Dr. Rodas with Pulmonology Critical Care Service. PERTINENT LABS AND X-RAY FINDINGS: Potassium ranged between 3.7 to 6.2. Creatinine ranged between 1.97 to 2.23. Estimated GFR ranged between 29 to 33. Total bilirubin ranged between 1.9 to 4.7. AST ranged between 73 to 315. ALT ranged between 162 to 339. Lipase ranged between 105 to 420. CBC showed a white blood cell count ranged between 8.7 to 14.0, hemoglobin ranged between 10.0 to 12.9. Blood cultures x2 dated 01/06/2020, showed no growth at 48 hours. Abdominal ultrasound dated 01/06/2020, showed gallbladder distention with extensive biliary sludge with positive Agustin sign. Common bile duct 0.7 cm. ERCP dated 01/06/2020, showed ascending cholangitis with biliary sludge. Nonfilling of the gallbladder. No evidence of malignant stricture or tumor. HOSPITAL COURSE: The patient was initially admitted after presenting with mid epigastric abdominal pain with associated nausea and vomiting. The patient underwent evaluation including abdominal ultrasound imaging showing evidence of enlarged gallbladder with evidence of biliary sludge. The patient's findings concerning for ascending cholangitis in the context of metastatic renal cell carcinoma on current chemotherapy. The patient was evaluated by the General Surgery and GI Service, undergoing ERCP evaluation. Findings as noted previously; at which point, the patient underwent sphincterotomy; at which point, copious dark bile was evacuated. The patient continued on broad-spectrum IV antibiotic therapy with Zosyn and overall remained clinically stable. The patient was evaluated by the General Surgery Service for consideration of cholecystectomy; however, due to the patient's comorbid conditions including metastatic renal cell carcinoma and previous abdominal surgeries. The patient was deemed not an appropriate candidate for an acute intervention and continuation of conservative measures including IV antibiotic therapy. The patient rapidly clinically improved after sphincterotomy with decreasing LFTs and lipase. The patient remained afebrile, and white blood cell count normalized prior to discharge. The patient was transitioned from clear liquids to full liquids and tolerated without return of symptoms. I have examined the patient at the time of discharge and discussed followup instructions. The patient verbalized understanding and agreement, ready for discharge on 01/09/2020. DISCHARGE MEDICATIONS: 1. Ceftin 250 mg p.o. b.i.d. x10 days. 2. Metronidazole 500 mg p.o. t.i.d. x10 days. 3. Ursodiol 300 mg p.o. b.i.d. 4. Flomax 0.4 mg p.o. b.i.d. 5. Prednisone 5 mg p.o. q.a.m. 6. MiraLAX 17 g p.o. daily. 7. Procardia XL 60 mg p.o. daily. 8. Multivitamin 1 tablet p.o. daily. 9. Reglan 10 mg p.o. daily. 10. Ritalin 20 mg p.o. b.i.d. 11. Victoza 16 units subcutaneously daily. 12. Lenvima 10 mg p.o. at bedtime. 13. Hydralazine 50 mg p.o. t.i.d. 14. Lasix 20 mg p.o. daily. 15. Finasteride 5 mg p.o. at bedtime. 16. Doxylamine 25 mg p.o. at bedtime. 17. Eliquis 2.5 mg p.o. b.i.d. FOLLOWUP: The patient may follow up with his primary care provider, Dr. Jose Luis Whelan. The patient may follow up with Dr. Justice Ramos with GI Service. The patient may follow up with Dr. Krystin Peterson with Medical Oncology Service. CONDITION ON DISCHARGE: Stable. ACTIVITY: Ad anna. DIET: ADA with soft mechanical diet x48-72 hours. CODE STATUS: Full. DISPOSITION: Home on 01/09/2020. TIME SPENT: Total time preparing and coordinating discharge, 40 minutes. Job ID: [id number]
--- NOTE | 2020-01-11 08:43 | PQF ---
LEONOR DE SANTIAGO CHARLES DO [id number] CLINICAL DOCUMENTATION CLARIFICATION FORM: POST DISCHARGE Addendum to original discharge summary date: ____ Late entry note date: __ DATE:01/11/2020 ATTN: Jcarlos Moise Please exercise your independent, professional judgment in responding to the clarification form. Clinical indicators are provided on the bottom of this form for your review Please check appropriate box(s) to clarify if the following diagnosis has been ruled in or ruled out: Sepsis [ ] Ruled in diagnosis [ ] Continue to treat [ ] Resolved [ x ] Ruled out diagnosis [ ] Cannot rule out diagnosis [ ] Other diagnosis [ ] Unable to determine For continuity of documentation, please document condition throughout progress notes and discharge summary. Thank You. CLINICAL INDICATORS - SIGNS / SYMPTOMS / LABS Laboratory 01/05 WBC 13.9, Plt count 302, Neutrophils 90.7, Band 21, Lactic acid 2.4 Blood culture 01/05 No growth at 48 hrs Vital sign 01/05 BP 198/109, pulse 104, Resp 21, temp 102.8 ED note p2 01/05 SIRS scoring: Yes, pt did meet criteria H&P p4 01/05 comes to hospital due to epigastric pain H&P p4 01/05 Sepsis/ascending cholangitis RISK FACTORS H&P p1 01/05 74 year-old Male H&P p1 01/05 HTN H&P p1 01/05 CKD H&P p1 01/05 Renal Cancer with Lung mets H&P p1 01/05 DM H&P p3 01/05 Ascending Cholangitis H&P p3 01/05 Pancreatitis TREATMENTS NOV 01 IV Zosyn 4.5 gm NOV 01 IV NS 1L Blood culture 01/05 Operative report 01/05 ERCP with stone removal Abdomen ultrasound Sepsis protocol 01/05 (This form is maintained as a part of the permanent medical record) 2014 [employer]. All Rights Reserved [email or web address]
--- NOTE | 2020-01-13 12:59 | EKG ---
Test Reason : Blood Pressure : / mmHG Vent. Rate : 085 BPM Atrial Rate : 085 BPM P-R Int : 154 ms QRS Dur : 090 ms QT Int : 328 ms P-R-T Axes : 044 107 008 degrees QTc Int : 390 ms Normal sinus rhythm Rightward axis Borderline ECG Confirmed by HELGA CASTRO DO ([id number]), video tape editor JOSIAH DEL CASTILLO ([id number]) on 01/13/2020 12:59:25 PM Referred By: Confirmed By:HELGA CASTRO DO
== END 2020-01-09 13:45 | disposition home or self-care (01) | DRG 444 ==
LOC: ERS 17:32 → CCU 21:15 → IMCU/EMU 01-07 11:52 → 2NO 01-08 12:32
PROVIDERS: ADMIT Internal Medicine; ATTEND Internal Medicine
PROC: 0FC98ZZ Extirpation of Matter from Common Bile Duct, Via Natural or Artificial Opening Endoscopic (ICD-10-PCS; principal; 2020-01-06)
PROC: BF131ZZ Fluoroscopy of Gallbladder and Bile Ducts using Low Osmolar Contrast (ICD-10-PCS; 2020-01-06)
DX: K80.30 Calculus of bile duct with cholangitis, unspecified, without obstruction (principal); K85.90 Acute pancreatitis without necrosis or infection, unspecified; C64.9 Malignant neoplasm of unspecified kidney, except renal pelvis; C78.02 Secondary malignant neoplasm of left lung; C78.01 Secondary malignant neoplasm of right lung; Z68.41 Body mass index [BMI] 40.0-44.9, adult; N17.9 Acute kidney failure, unspecified; E27.3 Drug-induced adrenocortical insufficiency; E87.5 Hyperkalemia; D64.81 Anemia due to antineoplastic chemotherapy; T45.1X5A Adverse effect of antineoplastic and immunosuppressive drugs, initial encounter; E78.5 Hyperlipidemia, unspecified; N18.3 Chronic kidney disease, stage 3 (moderate); E11.22 Type 2 diabetes mellitus with diabetic chronic kidney disease; I12.9 Hypertensive chronic kidney disease with stage 1 through stage 4 chronic kidney disease, or unspecified chronic kidney disease; E66.01 Morbid (severe) obesity due to excess calories; M13.80 Other specified arthritis, unspecified site; G47.33 Obstructive sleep apnea (adult) (pediatric); Z96.642 Presence of left artificial hip joint; E78.00 Pure hypercholesterolemia, unspecified; T38.0X5A Adverse effect of glucocorticoids and synthetic analogues, initial encounter; Z86.711 Personal history of pulmonary embolism; Z79.01 Long term (current) use of anticoagulants; Z90.5 Acquired absence of kidney; Z88.1 Allergy status to other antibiotic agents; Z79.899 Other long term (current) drug therapy; Z79.4 Long term (current) use of insulin; Z79.52 Long term (current) use of systemic steroids
CPT/HCPCS: 36415; 36416; 74330; 76705; 80053; 81003; 81015; 83605; 83690; 85007; 85014; 85018; 85025; 85027; 85049; 85610; 85730; 86850; 86900; 86901; 87040; 93005; 94760; 96361; 96365; C1769; C9113; J0360; J1200; J1720; J1815; J2405; J2543; J2704; J3010; J3490; J7512

== ENCOUNTER 2020-01-26 14:01 | Observation (INO) | payer MEDICARE, OTHER ==
--- NOTE | 2020-01-26 14:38 | RAD ---
Exam: Chest one view HISTORY:Dyspnea. Shortness of breath. Comparison: 06/25/2019 FINDINGS: Cardiac silhouette:Upper normal cardiac silhouette Aorta: Unremarkable Pulmonary vessels: Normal Costophrenic angles: Clear LUNGS: Diffuse interstitial and alveolar opacities. Pneumothorax: None Osseous abnormalities: None IMPRESSION: Diffuse interstitial and alveolar opacities. Correlate for edema or infiltrate.
[2020-01-26 15:03] LABS: #Eosinphils 0.2 thou/uL (0.0-0.7); #Lymphocytes 0.9 thou/uL (1.20-3.40); #Monocytes 0.6 thou/uL (0.11-0.59); #Neutrophils 8.1 thou/uL (1.40-6.50); %Basophils 0.2 % (0.0-1.0); %Eosinophils 1.8 % (0.0-10.0); %Lymphocytes 9.6 % (21.0-51.0); %Neutrophils 82.5 % (42.0-75.0); Hemoglobin 11.7 g/dL (14.0-18.0); Mean Corpuscular HGB CONC 31.7 g/dL (32.0-36.0); Mean Corpuscular Hemoglobin 31.1 pg (27.0-31.0); Mean Corpuscular Volume 97.9 fL (78.0-98.0); Mean Platelet Volume 7.1 fL (7.4-10.4); Platelet Count 292 thou/uL (130-400); RBC Distribution Width 16.7 % (11.5-14.5); Red Blood Cell (RBC) Count 3.77 mill/uL (4.70-6.10); White Blood Cell (WBC) Count 9.8 thou/uL (4.8-10.8)
[2020-01-26 15:30] LABS: ALT (SGPT) 13 U/L (8-55); AST (SGOT) 36 U/L (5-34); Albumin 3.3 g/dL (3.4-4.8); Alkaline Phosphatase 103 U/L (40-110); Anion Gap 16 mmol/L (10-20); BUN (Urea Nitrogen) 32 mg/dL (8.4-25.7); Bilirubin, Total 0.5 mg/dL (0.2-1.2); Calc. Creatinine Clearance 0 mL/min (70-130); Calcium 9.6 mg/dL (7.8-10.44); Carbon Dioxide 22 mmol/L (23-31); Chloride 102 mmol/L (98-107); Estimated GFR-MDRD 33; Globulin 3.7 g/dL (2.4-3.5); Glucose 266 mg/dL (83-110); Potassium 6.1 mmol/L (3.5-5.1); Sodium 134 mmol/L (136-145)
--- NOTE | 2020-01-26 20:41 | HP ---
PRIMARY CARE PHYSICIAN: Jose Luis Whelan MD CHIEF COMPLAINT: It is hard to breathe. HISTORY OF PRESENT ILLNESS: Mr. Wilks is a very pleasant 74-year-old gentleman, who has a history of metastatic renal cell carcinoma. He has a widely metastatic disease to the lungs. He was recently discharged from our facility about 2 weeks ago for ascending cholangitis. The patient had an ERCP and was discharged home. He says that he was doing well until he started to become a little bit more short of breath every day. He says that it has been hard to breathe and he had not needed any supplemental oxygen but in the last few days, he has noticed that his oxygen saturations were dropping. He put on the supplemental oxygen with some improvement. However, he noticed even with this continued dyspnea. He denies any chest pain. He did notice some cough and occasional wheeze and the cough was productive of some green sputum. There is no fever, however. No nausea, no vomiting, no diarrhea, no body aches. As a result of his symptoms, he came to the ER for evaluation. A chest x-ray in the emergency room showed bilateral diffuse interstitial alveolar opacities. It looked slightly increased from the x-ray noted in September by my reading and was also noted to be hyperkalemic and also has chronic kidney disease and is being admitted for further evaluation and treatment. Otherwise, the patient appears relatively well despite his symptoms. REVIEW OF SYSTEMS: All systems were reviewed and are negative except for that mentioned in the history of present illness. PAST MEDICAL HISTORY: Significant for hypertension, hypercholesterolemia, renal cell carcinoma, diabetes mellitus type 2, obstructive sleep apnea on CPAP, chronic kidney disease stage 3. PAST SURGICAL HISTORY: He is status post right nephrectomy. He has also had a left lobectomy, bilateral knee replacement, bilateral hip replacement, and shoulder surgery. ALLERGIES: TO CIPROFLOXACIN. SOCIAL HISTORY: He is a nonsmoker and nondrinker. He is , has 3 children. His and son can be surrogate decision makers. His 's name is Marissa. FAMILY HISTORY: Significant for heart disease and kidney disease. MEDICATIONS: Include: 1. Lenvima, he takes that daily. 2. Victoza he takes 16 units subcu daily. 3. Procardia 60 mg daily. 4. Reglan 10 mg once a day. 5. Ritalin 20 mg twice daily. 6. Flomax 0.4 mg twice a day. 7. Eliquis 5 mg twice a day. 8. Pioneer 10/325 q.6 hours as needed. 9. Finasteride 5 mg daily. 10. Cymbalta 60 mg daily. 11. Hydralazine 25 mg 3 times a day. 12. Prednisone 5 mg daily. 13. Lasix on Wednesday, Wednesday, Wednesday and Wednesday. 14. Tresiba FlexTouch 12 units subcu once daily. PHYSICAL EXAMINATION: GENERAL: He is alert and oriented. He appears to be in no acute distress. He is well developed and well nourished. VITAL SIGNS: Blood pressure 125/60, heart rate 75, respiratory rate of 22, temperature is 98.5, and O2 saturation was 96% on 3 L. HEENT: Pupils are equal, round, and reactive. Extraocular muscles are intact. His sclerae are anicteric. Throat, no erythema, no exudates. NECK: No adenopathy. No bruits. LUNGS: Essentially clear to auscultation. I did not appreciate any wheezing, rales, or rhonchi. CARDIOVASCULAR: He has a normal S1, S2. No S3 or S4. No murmurs, clicks, or rubs. ABDOMEN: Obese. It is soft, nontender, and nondistended. Positive for bowel sounds. No rebound. No guarding. No organomegaly. EXTREMITIES: He has 1 to 2+ pitting edema. There is no calf tenderness. No joint effusions. NEUROLOGIC: His cranial nerves are intact. Muscle strength is 5/5 in both his upper and lower extremities. SKIN AND INTEGUMENT: No skin changes. No rashes. LABORATORY DATA AND IMAGING: White blood cell count is 9.8, hemoglobin 11.7, hematocrit is 36.9, and platelet count is 292. Sodium 134, potassium 6.1, chloride is 102, CO2 is 22, BUN of 32, creatinine 2.0, glucose is 266, AST is 36. Again on the chest x-ray, he has bilateral increased pulmonary vascular markings with patchy alveolar densities throughout. It appears to be slightly more dense than in September. ASSESSMENT: This is a pleasant 74-year-old gentleman, who presents with worsening shortness of breath. I suspect this could be due to either worsening cancerous metastatic disease or he may have some mild volume overload superimposed on the metastatic disease. It is unlikely that it is a pulmonary embolism given that he is already on anticoagulation. He does not give any overt signs of infection and does not appear toxic. He will be placed in observation, monitored on supplemental oxygen, and consult Pulmonology with regard to the respiratory failure with hypoxemia. 1. Hyperkalemia. We will need to repeat the potassium to make sure this is not an erroneous value and if in fact it is correct, we will treat with Kayexalate, glucose, insulin, etc. 2. Diabetes mellitus. He is free to take his own medications including the Victoza and Tarceva, as well as a sliding scale will be provided. Chronic kidney disease stage 3. This appears to be stable. 3. Obstructive sleep apnea. The patient can continue his usual CPAP settings at night. Job ID: [id number]
[2020-01-26] MEDS ORDERED: HumaLOG 300 UNITS/3 ML VIAL SC PRN (22:11)
[2020-01-26] MEDS ORDERED: Dextrose 50% Abboject 50 ML SYRINGE SLOW IVP PRN (22:11)
[2020-01-26] MEDS ORDERED: Dextrose 5% in Water 1,000 ML IV PRN (22:11)
[2020-01-26] MEDS ORDERED: Ondansetron PF 4 MG/2 ML Vial IVP PRN (22:11)
[2020-01-26] MEDS ORDERED: Ondansetron ODT 4 MG TAB PO PRN (22:11)
[2020-01-26] MEDS ORDERED: Guaifenesin DM 100-10/5 ML UDCUP PO PRN (22:11)
[2020-01-26] MEDS ORDERED: Acetaminophen 325 MG TAB PO PRN (22:11)
[2020-01-26] MEDS ORDERED: Apixaban 5 MG TAB PO SCH (22:30)
[2020-01-26] MEDS ORDERED: Melatonin 3 MG TAB PO SCH (22:30)
[2020-01-26 23:03] LABS: Anion Gap 14 mmol/L (10-20); BUN (Urea Nitrogen) 32 mg/dL (8.4-25.7); Calc. Creatinine Clearance 57 mL/min (70-130); Calcium 9.2 mg/dL (7.8-10.44); Carbon Dioxide 24 mmol/L (23-31); Chloride 104 mmol/L (98-107); Estimated GFR-MDRD 36; Glucose 158 mg/dL (83-110); Potassium 4.9 mmol/L (3.5-5.1); Sodium 137 mmol/L (136-145)
[2020-01-27 04:30] VITALS: BMI 39.0
[2020-01-27 04:50] LABS: #Eosinphils 0.3 thou/uL (0.0-0.7); #Lymphocytes 1.2 thou/uL (1.20-3.40); #Monocytes 0.6 thou/uL (0.11-0.59); #Neutrophils 5.8 thou/uL (1.40-6.50); %Basophils 0.5 % (0.0-1.0); %Eosinophils 4.3 % (0.0-10.0); %Lymphocytes 15.2 % (21.0-51.0); Hemoglobin 10.8 g/dL (14.0-18.0); Mean Corpuscular HGB CONC 32.8 g/dL (32.0-36.0); Mean Corpuscular Hemoglobin 32.4 pg (27.0-31.0); Mean Corpuscular Volume 98.7 fL (78.0-98.0); Mean Platelet Volume 6.7 fL (7.4-10.4); Platelet Count 251 thou/uL (130-400); RBC Distribution Width 16.5 % (11.5-14.5); Red Blood Cell (RBC) Count 3.35 mill/uL (4.70-6.10)
[2020-01-27 05:10] LABS: Anion Gap 14 mmol/L (10-20); BUN (Urea Nitrogen) 30 mg/dL (8.4-25.7); Calc. Creatinine Clearance 61 mL/min (70-130); Calcium 9.3 mg/dL (7.8-10.44); Carbon Dioxide 24 mmol/L (23-31); Chloride 105 mmol/L (98-107); Estimated GFR-MDRD 38; Glucose 129 mg/dL (83-110); Potassium 4.6 mmol/L (3.5-5.1); Sodium 138 mmol/L (136-145)
[2020-01-27] MEDS: Apixaban 5 MG TAB PO SCH ×2 (08:53→20:31)
--- NOTE | 2020-01-27 12:17 | PDOC.HOSPP ---
- Subjective Encounter Date: 01/27/20 - Objective Vital Signs & Weight: Vital Signs (12 hours) Temp Pulse Resp BP Pulse Ox 01/27/20 08:48 97.4 F L 77 20 157/66 H 95 01/27/20 05:44 55 L 151/84 H 01/27/20 03:53 97.6 F 70 20 194/71 H 96 Weight Weight 257 lb 12.796 oz I&O: 01/26/20 01/27/20 01/28/20 06:59 06:59 06:59 Intake Total 100 Output Total 425 Balance -325 Result Diagrams: 01/27/20 04:40 01/27/20 04:40 Additional Labs: Accuchecks 01/27/20 01/26/20 05:54 20:35 POC Glucose 141 H 189 H Hospitalist ROS - Review of Systems Respiratory: reports: SOB with excertion - Medication Medications: Active Medications Generic Name Dose Route Start Last Admin Trade Name Freq PRN Reason Stop Dose Admin Apixaban 5 mg 01/27/20 09:00 01/27/20 08:53 Eliquis PO 5 mg BID ARRON Administration - Exam General Appearance: awake alert ENT: normocephalic atraumatic Neck: supple, no JVD Heart: RRR Respiratory: normal chest expansion, no tachypnea Extremities: no cyanosis Neurological: cranial nerve grossly intact, no focal deficits Hosp A/P (1) Acute respiratory failure with hypoxia Code(s): J96.01 - ACUTE RESPIRATORY FAILURE WITH HYPOXIA Status: Acute (2) Hyperkalemia Code(s): E87.5 - HYPERKALEMIA Status: Acute (3) CKD (chronic kidney disease) stage 3, GFR 30-59 ml/min Status: Chronic (4) Metastatic renal cell carcinoma Code(s): C64.9 - MALIGNANT NEOPLASM OF UNSP KIDNEY, EXCEPT RENAL PELVIS Status : Chronic - Plan The patient presented with dyspnea on exertion and increased oxygen requirement. His underlying respiratory failure is likely due to metastatic renal cell carcinoma to the lungs. He is on anticoagulation for DVT which makes pulmonary embolism a possibility albeit less likely. No evidence of sepsis. Pulmonology consultation pending. Hyperkalemia resolved. Creatinine level appears to be at baseline.
[2020-01-27] MEDS ORDERED: Furosemide 40 MG/4 ML VIAL SLOW IVP SCH (13:00)
--- NOTE | 2020-01-27 13:17 | CON ---
DATE OF CONSULTATION: 01/27/2020 CONSULTING PHYSICIAN: Hospitalist Group. REASON FOR CONSULTATION: Shortness of breath. HISTORY OF PRESENT ILLNESS: Mr. Wilks is a pleasant 74-year-old whom I have seen before in the hospital. He is a patient of Dr. Rodas and Dr. Whelan. He came to the hospital yesterday complaining of increasing shortness of breath and a cough. He was in the hospital several weeks ago with cholangitis. He did not get his gallbladder out at that time. He was just treated with biliary drainage. He said he did take two courses of antibiotics after hospital discharge. From a respiratory standpoint, he has a history of metastatic renal cell carcinoma to his lung. He also has sleep apnea and he is on CPAP therapy. PAST MEDICAL HISTORY: As above. 1. Hypertension. 2. Diabetes mellitus. 3. Autoimmune arthropathy. 4. Chronic kidney disease, stage 3. 5. LOUIS. PAST SURGICAL HISTORY: 1. Left hip arthroplasty. 2. Knee surgery. 3. Right nephrectomy. 4. Left lower lobe resection. MEDICATIONS: See medication section of chart. ALLERGIES: CIPRO. SOCIAL HISTORY: Does not smoke. Does not consume alcohol. Does not use illicit drugs. REVIEW OF SYSTEMS: Remarkable for weakness. He has also been told by MD Coles there is nothing further that can be done for his cancer. PHYSICAL EXAMINATION: VITAL SIGNS: Temperature 97.4, pulse 77, respirations 20, O2 saturation 95% on 2 L, and blood pressure 157/66. GENERAL: He is resting comfortably on his CPAP with nasal pillow mask. HEENT: Unremarkable. NECK: No adenopathy or JVD. LUNGS: He has scattered crackles bilaterally. CARDIAC: S1 and S2. Regular. ABDOMEN: Soft, protuberant. EXTREMITIES: No clubbing, cyanosis, or edema. LABORATORY DATA: Sodium 138, potassium 4.6, BUN 30, creatinine 1.7, and glucose 129. White blood count 8, hematocrit 33, and platelet count 251. IMAGING DATA: His x-ray shows diffuse metastatic changes. I cannot rule out a concurrent infiltrate. 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 I did review a CT scan from September, which showed diffuse cannonball lesions bilaterally. ASSESSMENT: This patient has increasing shortness of breath, which is likely an effect of the metastatic renal cell carcinoma. Since he has recently been in the hospital, the possibility of a concurrent pneumonia is possible, but somewhat unlikely. It does not seem that thromboembolic disease would be much of a factor here as the patient is currently on anticoagulation. RECOMMENDATIONS: I would treat him with some antibiotics, steroids, and perhaps a dose of Lasix. This would be a shotgun approach to see if he improves. I do not see a role for further CT scanning at this point, and the patient is not a candidate to receive contrast secondary to his chronic kidney disease after nephrectomy. This patient's prognosis is poor. He has been told by MD Coles that they have no further treatment form. In the extermination supervisor, hospice care should be considered. Job ID: [id number]
[2020-01-27] MEDS: Piperacillin/Tazobactam 2.25 GM in Sodium Chloride 0.9% 100 ML IVPB SCH ×2 (14:17→21:44)
[2020-01-27] MEDS: methylPREDNISolone Sod Succ 40 MG VIAL IVP SCH (17:10)
[2020-01-27] MEDS: hydrALAZINE 20 MG/ML VIAL SLOW IVP PRN (20:35)
[2020-01-27] MEDS ORDERED: Melatonin 3 MG TAB PO SCH (21:00)
[2020-01-27] MEDS ORDERED: LENVATINIB MESYLATE 10 MG PO SCH (21:00)
[2020-01-27] MEDS ORDERED: Prevnar 13-Val Conj/PF 0.5 ML SYRINGE IM ONE (21:00)
[2020-01-28] MEDS: methylPREDNISolone Sod Succ 40 MG VIAL IVP SCH ×2 (00:30→05:29)
[2020-01-28] MEDS: hydrALAZINE 20 MG/ML VIAL SLOW IVP PRN (04:14)
[2020-01-28] MEDS: Piperacillin/Tazobactam 2.25 GM in Sodium Chloride 0.9% 100 ML IVPB SCH (05:29)
[2020-01-28] MEDS: HumaLOG 300 UNITS/3 ML VIAL SC PRN ×2 (06:17→11:36)
[2020-01-28] MEDS ORDERED: hydrALAZINE 20 MG/ML VIAL SLOW IVP SCH (06:30)
[2020-01-28] MEDS: Apixaban 5 MG TAB PO SCH (09:47)
[2020-01-28] MEDS ORDERED: Amlodipine 10 MG TAB PO SCH (10:15)
[2020-01-28 10:59] LABS: Hemoglobin 12.2 g/dL (14.0-18.0); Mean Corpuscular HGB CONC 32.3 g/dL (32.0-36.0); Mean Corpuscular Hemoglobin 32.1 pg (27.0-31.0); Mean Corpuscular Volume 99.3 fL (78.0-98.0); Mean Platelet Volume 7.2 fL (7.4-10.4); Platelet Count 296 thou/uL (130-400); RBC Distribution Width 16.2 % (11.5-14.5); Red Blood Cell (RBC) Count 3.81 mill/uL (4.70-6.10); White Blood Cell (WBC) Count 10.4 thou/uL (4.8-10.8)
[2020-01-28 11:10] LABS: Anion Gap 16 mmol/L (10-20); BUN (Urea Nitrogen) 32 mg/dL (8.4-25.7); Calc. Creatinine Clearance 51 mL/min (70-130); Calcium 9.8 mg/dL (7.8-10.44); Carbon Dioxide 22 mmol/L (23-31); Chloride 102 mmol/L (98-107); Estimated GFR-MDRD 31; Glucose 368 mg/dL (83-110); Potassium 4.9 mmol/L (3.5-5.1); Sodium 135 mmol/L (136-145)
[2020-01-28 11:33] LABS: Large Platelets SLIGHT; Lymphocytes 2 % (21-51); MDiff Complete? YES; Monocytes 8 % (0-10); Neutrophil 90 % (42-75); Platelet Morphology Comment Appears Adequate
[2020-01-28 11:34] LABS: Hemoglobin 12.1 g/dL (14.0-18.0); Platelet Count 303 thou/uL (130-400)
--- NOTE | 2020-01-28 11:46 | PRG ---
DATE OF SERVICE: 01/28/2020 SUBJECTIVE: The patient seems to be doing reasonably well. He wants to go home. He says the diuretics helped his breathing immensely. OBJECTIVE: VITAL SIGNS: Temperature 98.6, pulse 62, respirations 18, O2 saturation 98%, blood pressure 156/74. HEENT: Clear. NECK: No JVD. LUNGS: Fairly clear. CARDIAC: S1, S2. Regular. ABDOMEN: Soft. EXTREMITIES: No edema. LABORATORY DATA: White blood cell count 10.4, hematocrit 37.9, and platelet count 296. Sodium 135, potassium 4.9, chloride 102, CO2 of 22, BUN 32, creatinine 2.0, glucose 368. ASSESSMENT: Decompensated breathing-better likely the result of the diuretics more than anything else. PLAN: At this point, I would just treat him with diuretics. He was taking a dose twice a week at home. I told him that he might need to do that every day. His goal should be to keep his weight between 250 and 253 pounds. He can adjust the diuretics as needed. At this point, I would go ahead and stop the antibiotics and the steroids, and he can go home with a diuretic instructions described above. Job ID: [id number]
[2020-01-28 17:13] VITALS: BP 164/73; TEMP 98.9
[2020-01-29] MEDS ORDERED: Amlodipine 10 MG TAB PO SCH (09:00)
--- NOTE | 2020-02-03 12:54 | EKG ---
Test Reason : SOB Blood Pressure : / mmHG Vent. Rate : 062 BPM Atrial Rate : 062 BPM P-R Int : 162 ms QRS Dur : 100 ms QT Int : 398 ms P-R-T Axes : 020 022 000 degrees QTc Int : 403 ms Normal sinus rhythm Cannot rule out Anterior infarct , age undetermined Abnormal ECG Confirmed by MAURO RUEDA ([id number]), editor farm journal JOSIAH DEL CASTILLO ([id number]) on 02/03/2020 12:53:48 PM Referred By: Confirmed By:MAURO Ratliff
== END 2020-01-28 17:10 | disposition home or self-care (01) ==
LOC: ERS 14:01 → 2NO 16:20
PROVIDERS: ADMIT Internal Medicine; ATTEND Internal Medicine
DX: J96.01 Acute respiratory failure with hypoxia (principal); I12.9 Hypertensive chronic kidney disease with stage 1 through stage 4 chronic kidney disease, or unspecified chronic kidney disease; E11.22 Type 2 diabetes mellitus with diabetic chronic kidney disease; N18.3 Chronic kidney disease, stage 3 (moderate); C64.9 Malignant neoplasm of unspecified kidney, except renal pelvis; E87.5 Hyperkalemia; G47.33 Obstructive sleep apnea (adult) (pediatric); Z88.1 Allergy status to other antibiotic agents
CPT/HCPCS: 71045; 80048 ×3; 80053; 82962 ×3; 83880; 84145; 84484; 85007; 85014; 85018; 85025 ×2; 85027; 85049; 93005; 96365; 96375; 96376 ×2; 99285; G0378 ×4; 36415; 36416; J0360; J1940; J2543; J2920; J3490

== ENCOUNTER 2020-02-05 11:04 | Outpatient (CLI) | payer MEDICARE, OTHER ==
--- NOTE | 2020-02-05 14:25 | CT ---
EXAM: CHEST, ABDOMEN, AND PELVIC CT SCAN WITHOUT IV CONTRAST: History: Malignant neoplasm, right kidney, except renal pelvis. Comparison: Abdomen/pelvic CT, 01-06-2020, CT angiogram chest, 10-22-2019. FINDINGS: Minimally increasing right pleural effusion. Numerous bilateral pulmonary metastases. Some of these a ppear to be smaller, some of these appear to be larger, and some of these are stable when compared to CT angio chest 10-22-2019. Left perihilar mass appears to be somewhat smaller than on the prior study . Stable appearing mediastinal lymph nodes. There is definite enlargement of the right adrenal mass, now measuring 7 cm in length where it previo usly measured 5.8 cm in length. Additionally there is enlargement of the left adrenal mass now measur ing 4.3 cm in size, where it previously measured 3.6 cm in size. Status post right nephrectomy. Fairl y prominent nodularity of the left kidney with several focal nodular densities which appear to be iso dense to renal parenchyma, evidence for complicated renal cysts or multiple solid masses, stable from prior 01-06-2020 study. The pelvis region is mostly obscured because of dense metal artifact from the total right hip replacement change. No evidence for overt bone metastasis. IMPRESSION: 1. Somewhat mixed appearance in regards to the multiple bilateral pulmonary metastasis. Some of these appear larger, some appear to be slightly smaller, and other appear to be stable. Increasing right p leural effusion. 2. Definite increase in size in the right and left adrenal metastasis. Stable appearing multiple nodu lar foci involving the left renal cortex, evidence for complicated cysts or multiple small solid mass es but overall stable in size. POS: RRE
== END 2020-02-05 11:05 | disposition home or self-care (01) ==
LOC: SCSCT 11:04
PROVIDERS: ATTEND Internal Medicine Hematology & Oncology
DX: C64.1 Malignant neoplasm of right kidney, except renal pelvis (principal); C79.72 Secondary malignant neoplasm of left adrenal gland; C78.02 Secondary malignant neoplasm of left lung; C78.01 Secondary malignant neoplasm of right lung; J90 Pleural effusion, not elsewhere classified; N28.89 Other specified disorders of kidney and ureter
CPT/HCPCS: 71250; 74177

== ENCOUNTER 2020-03-13 11:37 | Emergency (ER) | payer MEDICARE, OTHER ==
--- NOTE | 2020-03-13 12:08 | RAD ---
XR Chest Pa Lat STANDARD HISTORY: Right kidney malignancy. Right-sided chest pain. Patient currently receiving chemotherapy COMPARISON: [employer] Machine Tender film from CT chest of 02/05/2020 FINDINGS: The heart size is normal. The lungs are well expanded without focal areas of consolidation, pneumothorax or pleural effusions. Numerous nodular densities are again seen consistent with metastatic disease. There are degenerative changes in the spine. A right humeral head prostheses agai n noted.. IMPRESSION: No acute process. Bilateral pulmonary metastases.
[2020-03-13 13:08] LABS: #Eosinphils 0.2 thou/uL (0.0-0.7); #Lymphocytes 1.4 thou/uL (1.20-3.40); #Monocytes 0.7 thou/uL (0.11-0.59); #Neutrophils 13.7 thou/uL (1.40-6.50); %Basophils 0.3 % (0.0-1.0); %Eosinophils 1.1 % (0.0-10.0); %Lymphocytes 8.9 % (21.0-51.0); %Monocytes 4.4 % (0.0-10.0); %Neutrophils 85.3 % (42.0-75.0); Hemoglobin 13.2 g/dL (14.0-18.0); Mean Corpuscular HGB CONC 31.7 g/dL (32.0-36.0); Mean Corpuscular Hemoglobin 30.7 pg (27.0-31.0); Mean Corpuscular Volume 96.7 fL (78.0-98.0); Mean Platelet Volume 6.5 fL (7.4-10.4); Platelet Count 202 thou/uL (130-400); RBC Distribution Width 15.1 % (11.5-14.5); Red Blood Cell (RBC) Count 4.32 mill/uL (4.70-6.10); White Blood Cell (WBC) Count 16.1 thou/uL (4.8-10.8)
[2020-03-13 13:29] LABS: ALT (SGPT) 34 U/L (8-55); AST (SGOT) 25 U/L (5-34); Albumin 3.6 g/dL (3.4-4.8); Alkaline Phosphatase 108 U/L (40-110); Anion Gap 14 mmol/L (10-20); BUN (Urea Nitrogen) 37 mg/dL (8.4-25.7); Bilirubin, Total 1.5 mg/dL (0.2-1.2); Calc. Creatinine Clearance 0 mL/min (70-130); Calcium 9.9 mg/dL (7.8-10.44); Carbon Dioxide 26 mmol/L (23-31); Chloride 101 mmol/L (98-107); Estimated GFR-MDRD 29; Globulin 3.6 g/dL (2.4-3.5); Glucose 102 mg/dL (83-110); Potassium 5.7 mmol/L (3.5-5.1); Protein, Total 7.2 g/dL (5.8-8.1); Sodium 135 mmol/L (136-145)
[2020-03-13 15:01] LABS: Bacteria/HPF None Seen HPF (None Seen); Bilirubin Negative (Negative); Blood, Urine Negative (Negative); Clarity Turbid (Clear); Glucose, Urine (Dipstick) Normal (Negative); Ketone, Urine Negative (Negative); Leukocyte Negative Leu/uL (Negative); Nitrite Negative (Negative); Protein, Urine (Dipstick) 300 mg/dL (Neg-Trace); RBC/HPF 0-3 HPF (0-3); Specific Gravity, Urine 1.024 (1.002-1.036); Squamous Epithelial 0-3 HPF (0-3); Urobilinogen Normal mg/dL (Less than 2); WBC/HPF 0-3 HPF (0-3); pH, Urine 5.5 (5.0-9.0)
== END 2020-03-13 15:10 | disposition home or self-care (01) ==
LOC: ERS 11:37
DX: R07.81 Pleurodynia (principal); I10 Essential (primary) hypertension; E78.5 Hyperlipidemia, unspecified; E11.9 Type 2 diabetes mellitus without complications; C64.2 Malignant neoplasm of left kidney, except renal pelvis; C64.1 Malignant neoplasm of right kidney, except renal pelvis; C78.02 Secondary malignant neoplasm of left lung; C78.01 Secondary malignant neoplasm of right lung; Z79.899 Other long term (current) drug therapy
CPT/HCPCS: 36415; 71046; 80053; 81003; 81015; 84484; 85025; 87086; 93005